=== PATIENT | female | born 1960 | race Caucasian/White ===

== ENCOUNTER 2021-10-08 10:13 | Inpatient (IN) ==
[2021-10-08] MEDS ORDERED: SODIUM CHLORIDE 0.9% 1000ML 1,000 ML IV ONE (11:02)
[2021-10-08] MEDS ORDERED: THIAMINE HCL 200 MG in SODIUM CHLORIDE 0.9% 50 ML IV STA (11:13)
--- NOTE | 2021-10-08 11:19 | Emergency Department Note ---
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 The patient was found by her significant other and appeared to be altered. Initially this was thought to be a medical condition so 911 and police were called. The patient's significant other found many empty bottles of liquor in the garbage. It was quickly assessed and determined that the patient might just be under the influence of alcohol. The patient herself states that she has been depressed and does drink significant amounts of alcohol including beer and liquor. She does have a couple abrasions on her right wrist she states she cut herself because she was so depressed. She does have a history of depression but also has a history of hypertension. She states that she is tried to stop drinking in the past but over the last year she has had significantly increasing intake of alcohol. She denies having any recent trauma but states she does have some chest pain. She said she is had nausea but no vomiting. She denies having any back pain. She states that she has been unable to walk correctly especially over the last few days. She is not been seen by her family doctor. ROS: See above HPI for pertinent positives & negatives. A total of 10 systems reviewed and were otherwise negative. PAST MEDICAL HISTORY: See Below PAST SURGICAL HISTORY: See Below FAMILY HISTORY: See Below SOCIAL HISTORY: See Below HOME MEDICATIONS: See Below ALLERGIES: See Below VITALS: See Below PHYSICAL EXAMINATION: GENERAL: The patient is awake to verbal commands. She is somewhat obtunded and appears intoxicated. EYES: The conjunctivae are clear. The pupils are round and reactive. EARS, NOSE, MOUTH AND THROAT: The nose is without any evidence of any deformity. NECK: The neck is nontender and supple. RESPIRATORY: Normal respiratory effort is noted there is no evidence of wheezing rhonchi or rales CARDIOVASCULAR: Regular rate and rhythm noted there no murmurs rubs or gallops normal S1 normal S2. GASTROINTESTINAL: The abdomen is distended and diffusely tender. There is guarding in the right upper quadrant with questionable hepatomegaly. MUSCULOSKELETAL/EXTREMITIES: There is no evidence of gross deformity full range of motion is noted in the hips and shoulders. SKIN: Trace pedal edema was noted bilaterally. Skin was warm and dry. Superficial abrasions were noted on the right wrist. These are age- indeterminate. NEUROLOGIC: Patient is awake alert and oriented x3 strength is symmetric patellar reflexes are 2+ bilaterally PSYCH: Patient makes poor eye contact mostly evaluation. She does appear to have a flat affect and still admits to wanting to hurt her self. She shows me the abrasions on her right wrist. MEDICAL DECISION MAKING: The patient is a 61-year-old female who presented to the emergency department for an evaluation of altered mental status and alcohol abuse. She is also had depression and suicidal ideation. The patient was thought suffering from a neur ologic disorder. She was brought to the emergency department for further evaluation. On my evaluation I feel the patient's condition could be consistent with alcohol withdrawal or possibly Warnicke's encephalopathy. She was treated with thiamine as well as banana bag in the emergency department. She was reevaluated multiple times. She was treated with Ativan. I discussed the patient's laboratory and radiographic studies [facility] They have agreed to evaluate the patient in the emergency department for further management and disposition. Triage Nursing notes reviewed. Prior medical records reviewed Vital Signs: reviewed and remarkable for hypertension and hypoxia. Differential diagnosis: Infection, hypoglycemia, electrolyte abnormalities, overdose, toxicologic, cardiac sources, intracerebral event, neurologic, trauma, as well as other pathologies. ER treatment provided: See below Diagnostics interpreted by me: ECG: EKG was obtained in the emergency department. My interpretation is sinus tachycardia at 104 bpm. There is no ectopy. LVH with suggested by voltage criteria. No previous tracing was available. Cardiac Monitoring: An order was placed for continuous cardiac monitoring. The monitor shows a rate of 90 bpm with sinus rhythm. Laboratory studies: As stated above and show below. Imaging studies: See below Consultation(s): I discussed this case with Denys who [facility] Past Med/Surg History Social History Smoking Status: Current every day smoker Tobacco Type: Cigarettes Feels Safe at Home: No Allergies Allergies Allergy/AdvReac Type Severity Reaction Status Date / Time Penicillins Allergy Hives Verified 10/08/21 11:03 Sulfa (Sulfonamide Allergy Hives Verified 10/08/21 11:03 Antibiotics) Home Meds Home Medications Medication Instructions Recorded Confirmed amlodipine 5 mg tablet 5 mg PO DAILY 10/08/21 10/08/21 buspirone 15 mg tablet 15 mg PO BID 10/08/21 10/08/21 escitalopram oxalate 20 mg tablet 20 mg PO DAILY 10/08/21 10/08/21 (Lexapro) hydroxyzine HCl 50 mg tablet 50 mg PO BID 10/08/21 10/08/21 hydroxyzine HCl 50 mg tablet 50 mg PO BID PRN 10/08/21 10/08/21 lisinopril 10 mg tablet 10 mg PO DAILY 10/08/21 10/08/21 pantoprazole 40 mg tablet,delayed 40 mg PO DAILY 10/08/21 10/08/21 release trazodone 100 mg tablet 200 mg PO HS 10/08/21 10/08/21 Results & Data (ED) Vital Signs Vital Signs - 24 hr 10/08/21 10:24 10/08/21 11:00 10/08/21 11:30 Temperature 37 C Temperature Source Oral Pulse Rate 118 H 101 H 103 H Pulse Rate from SpO2 Sensor Pulse Rhythm Regular Respiratory Rate 22 23 22 Respiratory Effort / Characteristics Non-Labored Respiratory Depth Normal Respiratory Pattern Regular Blood Pressure 183/102 H 160/99 H 153/102 H Blood Pressure Mean 129 119 119 Blood Pressure Position Semi-fowlers Pulse Oximetry 91 93 94 Oxygen Delivery Method Room Air Nasal Cannula Oxygen Flow Rate 2 Sepsis Recent Fever Within 48 Hours No Sepsis New/Unexplained Change in Mental Status N/A Sepsis Action Taken by Nursing No Action Required 10/08/21 12:16 10/08/21 12:20 10/08/21 12:30 Temperature Temperature Source Pulse Rate 115 H 101 H Pulse Rate from SpO2 Sensor 102 H 97 H Pulse Rhythm Respiratory Rate 26 H 26 H 34 H Respiratory Effort / Characteristics Respiratory Depth Respiratory Pattern Blood Pressure 142/93 H 151/121 H Blood Pressure Mean 109 131 Blood Pressure Position Pulse Oximetry 96 95 90 Oxygen Delivery Method Oxygen Flow Rate Sepsis Recent Fever Within 48 Hours Sepsis New/Unexplained Change in Mental Status Sepsis Action Taken by Nursing 10/08/21 12:40 10/08/21 12:50 10/08/21 13:01 Temperature Temperature Source Pulse Rate 95 H 90 Pulse Rate from SpO2 Sensor Pulse Rhythm Respiratory Rate 20 29 H 26 H Respiratory Effort / Characteristics Respiratory Depth Respiratory Pattern Blood Pressure 144/91 H Blood Pressure Mean 108 Blood Pressure Position Pulse Oximetry 96 Oxygen Delivery Method Nasal Cannula Oxygen Flow Rate 2 Sepsis Recent Fever Within 48 Hours Sepsis New/Unexplained Change in Mental Status Sepsis Action Taken by Nursing 10/08/21 13:20 Temperature Temperature Source Pulse Rate 90 Pulse Rate from SpO2 Sensor 90 Pulse Rhythm Respiratory Rate 26 H Respiratory Effort / Characteristics Respiratory Depth Respiratory Pattern Blood Pressure Blood Pressure Mean Blood Pressure Position Pulse Oximetry 95 Oxygen Delivery Method Oxygen Flow Rate Sepsis Recent Fever Within 48 Hours Sepsis New/Unexplained Change in Mental Status Sepsis Action Taken by Usp Medications Current Medication List: was personally reviewed by me Laboratory Data Attestation: I reviewed the patient's lab results. Result diagrams: 10/08/21 10:54 10/08/21 10:54 Lab Results 10/08/21 10/08/21 10/08/21 Range/Units 10:54 10:54 10:54 WBC (4.8-10.8) K/uL RBC (4.2-5.4) M/uL Hgb (12.0-16.0) g/dL Hct (37-47) % MCV (80-100) fL MCH (25-34) pg MCHC (32-36) g/dL RDW Std Deviation (36.4-46.3) fL RDW Coeff of Julius (11.5-14.5) % Plt Count (130-400) K/uL MPV (7.4-10.4) fL Immature Gran % (Auto) % Neut % (Auto) % Lymph % (Auto) % [place] % (Auto) % Eos % (Auto) % Baso % (Auto) % Neut # (Auto) (1.4-6.5) K/uL Lymph # (Auto) (1.2-3.4) K/uL [place] # (Auto) (0.11-0.59) K/uL Eos # (Auto) (0-0.5) K/uL Baso # (Auto) (0-0.2) K/uL Immature Gran # (Auto) (0.00-0.02) K/uL Absolute Nucleated RBC (0-0) K/uL Nucleated RBC % (auto) % PT (9.0-12.0) Seconds INR (0.9-1.1) APTT (21.0-31.0) Seconds PTT Ratio Sodium 135 L (136-145) mmol/L Potassium 3.5 (3.5-5.1) mmol/L Chloride 90 L (98-107) mmol/L Carbon Dioxide 31 (21-32) mmol/L Anion Gap 14 H (3-11) BUN 30 H (6-23) mg/dl Creatinine 1.03 (0.6-1.2) mg/dl Est Cr Clr Drug Dosing 52.3 ml/min Est GFR ( Amer) 67.0 ml/min Est GFR (Non-Af Amer) 57.8 ml/min BUN/Creatinine Ratio 29.1 H (10-20) Glucose 195 H (70-99(Fasting)) mg/dl Osmolality (280-300) mOsm/kg Calcium 10.1 (8.5-10.1) mg/dl Troponin I High Sens 12.7 (0-14) pg/ml Lipase 477 H (11-82) U/L HCG, Qual Negative (Negative) Urine Color Urine Appearance (Clear) Urine pH (4.5-7.5) Ur Specific [place] (1.000-1.030) Urine Protein (Negative) Urine Glucose (UA) (Negative) Urine Ketones (Negative) Urine Blood (Negative) Urine Nitrite (Negative) Urine Bilirubin (Negative) Urine Urobilinogen (Negative) Ur Leukocyte Esterase (Negative) Urine WBC (Auto) (0-5) /hpf Urine RBC (Auto) (0-4) /hpf U Hyaline Cast (Auto) (0-5) /lpf U Epithel Cells (Auto) (0-5) /lpf Urine Bacteria (Auto) (Negative) Salicylates (3.0-30) mg/dl Urine Opiates Screen (Neg) Ur Methadone, Qual (Neg) Acetaminophen (10-30) ug/ml Urine Barbiturates (Neg) Ur Phencyclidine (PCP) (Neg) U Amphetamin/Meth Scrn (Neg) MDMA (Ecstasy) Screen (Neg) U Benzodiazepines Scrn (Neg) Ur Cocaine Metabolite (Neg) U Marijuana (THC) Screen (Neg) Ethyl Alcohol mg/dL < 10.0 (<10.0) mg/dl SARS-CoV-2, RNA, NAAT (NEGATIVE) 10/08/21 10/08/21 10/08/21 Range/Units 10:54 10:54 10:54 WBC 8.24 (4.8-10.8) K/uL RBC 3.97 L (4.2-5.4) M/uL Hgb 12.3 (12.0-16.0) g/dL Hct 35.1 L (37-47) % MCV 88.4 (80-100) fL MCH 31.0 (25-34) pg MCHC 35.0 (32-36) g/dL RDW Std Deviation 44.1 (36.4-46.3) fL RDW Coeff of Julius 13.6 (11.5-14.5) % Plt Count 136 (130-400) K/uL MPV 9.7 (7.4-10.4) fL Immature Gran % (Auto) 1.5 % Neut % (Auto) 85.9 % Lymph % (Auto) 6.3 % [place] % (Auto) 6.2 % Eos % (Auto) 0.0 % Baso % (Auto) 0.1 % Neut # (Auto) 7.08 H (1.4-6.5) K/uL Lymph # (Auto) 0.52 L (1.2-3.4) K/uL [place] # (Auto) 0.51 (0.11-0.59) K/uL Eos # (Auto) 0.00 (0-0.5) K/uL Baso # (Auto) 0.01 (0-0.2) K/uL Immature Gran # (Auto) 0.12 H (0.00-0.02) K/uL Absolute Nucleated RBC 0.03 H (0-0) K/uL Nucleated RBC % (auto) 0.4 % PT 10.3 (9.0-12.0) Seconds INR 1.0 (0.9-1.1) APTT 21.9 (21.0-31.0) Seconds PTT Ratio 0.8 Sodium (136-145) mmol/L Potassium (3.5-5.1) mmol/L Chloride (98-107) mmol/L Carbon Dioxide (21-32) mmol/L Anion Gap (3-11) BUN (6-23) mg/dl Creatinine (0.6-1.2) mg/dl Est Cr Clr Drug Dosing ml/min Est GFR ( Amer) ml/min Est GFR (Non-Af Amer) ml/min BUN/Creatinine Ratio (10-20) Glucose (70-99(Fasting)) mg/dl Osmolality 295 (280-300) mOsm/kg Calcium (8.5-10.1) mg/dl Troponin I High Sens (0-14) pg/ml Lipase (11-82) U/L HCG, Qual (Negative) Urine Color Urine Appearance (Clear) Urine pH (4.5-7.5) Ur Specific [place] (1.000-1.030) Urine Protein (Negative) Urine Glucose (UA) (Negative) Urine Ketones (Negative) Urine Blood (Negative) Urine Nitrite (Negative) Urine Bilirubin (Negative) Urine Urobilinogen (Negative) Ur Leukocyte Esterase (Negative) Urine WBC (Auto) (0-5) /hpf Urine RBC (Auto) (0-4) /hpf U Hyaline Cast (Auto) (0-5) /lpf U Epithel Cells (Auto) (0-5) /lpf Urine Bacteria (Auto) (Negative) Salicylates (3.0-30) mg/dl Urine Opiates Screen (Neg) Ur Methadone, Qual (Neg) Acetaminophen (10-30) ug/ml Urine Barbiturates (Neg) Ur Phencyclidine (PCP) (Neg) U Amphetamin/Meth Scrn (Neg) MDMA (Ecstasy) Screen (Neg) U Benzodiazepines Scrn (Neg) Ur Cocaine Metabolite (Neg) U Marijuana (THC) Screen (Neg) Ethyl Alcohol mg/dL (<10.0) mg/dl SARS-CoV-2, RNA, NAAT (NEGATIVE) 10/08/21 10/08/21 10/08/21 Range/Units 10:54 10:54 12:11 WBC (4.8-10.8) K/uL RBC (4.2-5.4) M/uL Hgb (12.0-16.0) g/dL Hct (37-47) % MCV (80-100) fL MCH (25-34) pg MCHC (32-36) g/dL RDW Std Deviation (36.4-46.3) fL RDW Coeff of Julius (11.5-14.5) % Plt Count (130-400) K/uL MPV (7.4-10.4) fL Immature Gran % (Auto) % Neut % (Auto) % Lymph % (Auto) % [place] % (Auto) % Eos % (Auto) % Baso % (Auto) % Neut # (Auto) (1.4-6.5) K/uL Lymph # (Auto) (1.2-3.4) K/uL [place] # (Auto) (0.11-0.59) K/uL Eos # (Auto) (0-0.5) K/uL Baso # (Auto) (0-0.2) K/uL Immature Gran # (Auto) (0.00-0.02) K/uL Absolute Nucleated RBC (0-0) K/uL Nucleated RBC % (auto) % PT (9.0-12.0) Seconds INR (0.9-1.1) APTT (21.0-31.0) Seconds PTT Ratio Sodium (136-145) mmol/L Potassium (3.5-5.1) mmol/L Chloride (98-107) mmol/L Carbon Dioxide (21-32) mmol/L Anion Gap (3-11) BUN (6-23) mg/dl Creatinine (0.6-1.2) mg/dl Est Cr Clr Drug Dosing ml/min Est GFR ( Amer) ml/min Est GFR (Non-Af Amer) ml/min BUN/Creatinine Ratio (10-20) Glucose (70-99(Fasting)) mg/dl Osmolality (280-300) mOsm/kg Calcium (8.5-10.1) mg/dl Troponin I High Sens (0-14) pg/ml Lipase (11-82) U/L HCG, Qual (Negative) Urine Color Dark Yellow Urine Appearance Cloudy A (Clear) Urine pH 8.0 H (4.5-7.5) Ur Specific [place] 1.023 (1.000-1.030) Urine Protein 2+ H (Negative) Urine Glucose (UA) Negative (Negative) Urine Ketones 1+ H (Negative) Urine Blood 2+ H (Negative) Urine Nitrite Positive A (Negative) Urine Bilirubin 1+ H (Negative) Urine Urobilinogen Positive H (Negative) Ur Leukocyte Esterase 1+ H (Negative) Urine WBC (Auto) >30 H (0-5) /hpf Urine RBC (Auto) >30 H (0-4) /hpf U Hyaline Cast (Auto) 5-10 H (0-5) /lpf U Epithel Cells (Auto) >30 H (0-5) /lpf Urine Bacteria (Auto) 4+ H (Negative) Salicylates < 3.0 L (3.0-30) mg/dl Urine Opiates Screen (Neg) Ur Methadone, Qual (Neg) Acetaminophen < 3 L (10-30) ug/ml Urine Barbiturates (Neg) Ur Phencyclidine (PCP) (Neg) U Amphetamin/Meth Scrn (Neg) MDMA (Ecstasy) Screen (Neg) U Benzodiazepines Scrn (Neg) Ur Cocaine Metabolite (Neg) U Marijuana (THC) Screen (Neg) Ethyl Alcohol mg/dL (<10.0) mg/dl SARS-CoV-2, RNA, NAAT NEGATIVE (NEGATIVE) 10/08/21 Range/Units 12:11 WBC (4.8-10.8) K/uL RBC (4.2-5.4) M/uL Hgb (12.0-16.0) g/dL Hct (37-47) % MCV (80-100) fL MCH (25-34) pg MCHC (32-36) g/dL RDW Std Deviation (36.4-46.3) fL RDW Coeff of Julius (11.5-14.5) % Plt Count (130-400) K/uL MPV (7.4-10.4) fL Immature Gran % (Auto) % Neut % (Auto) % Lymph % (Auto) % [place] % (Auto) % Eos % (Auto) % Baso % (Auto) % Neut # (Auto) (1.4-6.5) K/uL Lymph # (Auto) (1.2-3.4) K/uL [place] # (Auto) (0.11-0.59) K/uL Eos # (Auto) (0-0.5) K/uL Baso # (Auto) (0-0.2) K/uL Immature Gran # (Auto) (0.00-0.02) K/uL Absolute Nucleated RBC (0-0) K/uL Nucleated RBC % (auto) % PT (9.0-12.0) Seconds INR (0.9-1.1) APTT (21.0-31.0) Seconds PTT Ratio Sodium (136-145) mmol/L Potassium (3.5-5.1) mmol/L Chloride (98-107) mmol/L Carbon Dioxide (21-32) mmol/L Anion Gap (3-11) BUN (6-23) mg/dl Creatinine (0.6-1.2) mg/dl Est Cr Clr Drug Dosing ml/min Est GFR ( Amer) ml/min Est GFR (Non-Af Amer) ml/min BUN/Creatinine Ratio (10-20) Glucose (70-99(Fasting)) mg/dl Osmolality (280-300) mOsm/kg Calcium (8.5-10.1) mg/dl Troponin I High Sens (0-14) pg/ml Lipase (11-82) U/L HCG, Qual (Negative) Urine Color Urine Appearance (Clear) Urine pH (4.5-7.5) Ur Specific [place] (1.000-1.030) Urine Protein (Negative) Urine Glucose (UA) (Negative) Urine Ketones (Negative) Urine Blood (Negative) Urine Nitrite (Negative) Urine Bilirubin (Negative) Urine Urobilinogen (Negative) Ur Leukocyte Esterase (Negative) Urine WBC (Auto) (0-5) /hpf Urine RBC (Auto) (0-4) /hpf U Hyaline Cast (Auto) (0-5) /lpf U Epithel Cells (Auto) (0-5) /lpf Urine Bacteria (Auto) (Negative) Salicylates (3.0-30) mg/dl Urine Opiates Screen Neg (Neg) Ur Methadone, Qual Neg (Neg) Acetaminophen (10-30) ug/ml Urine Barbiturates Neg (Neg) Ur Phencyclidine (PCP) Neg (Neg) U Amphetamin/Meth Scrn Neg (Neg) MDMA (Ecstasy) Screen Pos H (Neg) U Benzodiazepines Scrn Neg (Neg) Ur Cocaine Metabolite Neg (Neg) U Marijuana (THC) Screen Neg (Neg) Ethyl Alcohol mg/dL (<10.0) mg/dl SARS-CoV-2, RNA, NAAT (NEGATIVE) Administered Medications Discontinued Medications Sodium Chloride (Nss 1000ml) 1,000 mls @ 999 mls/hr IV .Q1H1M ONE Stop: 10/08/21 12:02 Last Infusion: 10/08/21 12:04 Dose: 0 mls/hr Documented by: [id number] Admin: 10/08/21 11:03 Dose: 999 mls/hr Documented by: [id number] Thiamine HCl 200 mg/ Sodium (Chloride) 52 mls @ 208 mls/hr IV NOW STA Stop: 10/08/21 11:14 Last Infusion: 10/08/21 12:01 Dose: 0 mls/hr Documented by: [id number] Admin: 10/08/21 11:46 Dose: 208 mls/hr Documented by: [id number] Multivitamins 10 ml/ Thiamine HCl 100 mg/ Folic Acid 1 mg/Sodium Chloride 1,011.2 mls @ 1,011.2 mls/hr IV .Q1H ONE Stop: 10/08/21 13:16 Last Admin: 10/08/21 12:38 Dose: 1,011.2 mls/hr Documented by: [id number] Lorazepam (Lorazepam 2 Mg/1 Ml Vial) 1 mg IV NOW STA Stop: 10/08/21 12:18 Last Admin: 10/08/21 12:26 Dose: 1 mg Documented by: [id number] Imaging Data Radiologist's Impression: Abdomen/Pelvis CT 10/08/21 11:[address] WITHOUT CONTRAST CT DOSE: 465.65 mGy.cm HISTORY: Generalized abdominal pain. TECHNIQUE: Multiaxial CT images of the abdomen and pelvis were performed without contrast. A dose lowering technique was utilized adhering to the principles of ALARA. COMPARISON STUDY: None. FINDINGS: The lung bases are clear. No pneumoperitoneum. No pneumatosis. No fractures within the visualized osseous structures. There is a small hiatus he rnia. Severe hepatic steatosis. Sludge-filled gallbladder. No gallbladder wall thickening. The unenhanced spleen, adrenal glands, pancreas, and kidneys are unremarkable. No retroperitoneal lymphadenopathy. Normal caliber abdominal aorta. No renal or ureteral stones. No hydronephrosis. A 2.4 cm calcified uterine fibroid. The bladder is unremarkable. The bilateral adnexa are within normal limits. There is mild pelvic floor collapse. Suboptimal evaluation for bowel pathology due to the lack of intravenous and oral contrast. However, there is no definite bowel wall thickening or obstruction. A few colonic diverticula. No evidence for acute diverticulitis. Normal appendix. IMPRESSION: 1. Severe hepatic steatosis. 2. Sludge-filled gallbladder. No gallbladder wall thickening. 3. No bowel wall thickening or obstruction. 4. Normal appendix. 5. Colonic diverticulosis. No evidence for acute diverticulitis. 6. A 2.4 cm partially calcified uterine fibroid. 7. Small hiatus hernia. ACT 112: Negative or not required by law. Electronically signed by: Mohit Badillo M.D. 10/08/2021 12:12 PM Chest X-Ray 10/08/21 11:13 XR chest 1V portable HISTORY: Shortness of breath. COMPARISON: None. FINDINGS: Mild interstitial/vascular thickening. The heart is normal in size. No pleural effusion. No pneumothorax. IMPRESSION: Mild interstitial/vascular thickening. This could be due to mild congestive change or a viral process. ACT 112: Negative or not required by law. Electronically signed by: Mohit Badillo M.D. 10/08/2021 12:[address] 10/08/21 11:[address] DOSE: 687.98 mGy.cm HISTORY: Altered mental status. TECHNIQUE: Multiaxial CT images of the head were performed without the use of intravenous contrast. Automated exposure control was utilized for this study. A dose lowering technique was utilized adhering to the principles of ALARA. Comparison: None. Findings: The paranasal sinuses and mastoid air cells are clear. The calvarium and skull base are intact. The ventricles and sulci are within normal limits. There is no mass, hematoma, midline shift, or acute infarct. Impression: No acute intracranial abnormality. ACT 112: Negative or not required by law. Electronically signed by: Mohit Badillo M.D. 10/08/2021 12:08 PM Discharge Plan Visit Data Chief Complaint: Alcohol Withdrawal Stated Complaint: 201 ED Provider: Brandon Gaspar Discharge Problem: Alcohol withdrawal syndrome, Urinary tract infection, Depression with suicidal ideation, Wernicke's encephalopathy Patient Disposition: Being Evaluated by Hospitalist Forms Stand Alone Forms: [facility], Suicide Prevention Resources Prescriptions Prescriptions: No Action hydroxyzine HCl 50 mg Tablet 50 mg PO BID RF: 0 hydroxyzine HCl 50 mg Tablet 50 mg PO BID PRN (Reason: Anxiety) RF: 0 amlodipine 5 mg Tablet 5 mg PO DAILY RF: 0 trazodone 100 mg Tablet 200 mg PO HS RF: 0 pantoprazole 40 mg Tablet,Delayed Release (Dr/Ec) 40 mg PO DAILY RF: 0 lisinopril 10 mg Tablet 10 mg PO DAILY RF: 0 buspirone 15 mg Tablet 15 mg PO BID RF: 0 escitalopram oxalate [Lexapro] 20 mg Tablet 20 mg PO DAILY RF: 0 Referrals Referrals: PCP,NO [Physician] -
[2021-10-08 11:32] LABS: Basophils # (auto) 0.01 K/uL (0-0.2); Basophils % (auto) 0.1 %; Hematocrit (blood only) 35.1 % (37-47); Hemoglobin 12.3 g/dL (12.0-16.0); Immature Granulocytes # (auto) 0.12 K/uL (0.00-0.02); Immature Granulocytes % (auto) 1.5 %; Lymphocytes # (auto) 0.52 K/uL (1.2-3.4); Lymphocytes % (auto) 6.3 %; Mean Corpuscular Volume 88.4 fL (80-100); Mean Platelet Volume 9.7 fL (7.4-10.4); Monocytes # (auto) 0.51 K/uL (0.11-0.59); Monocytes % (auto) 6.2 %; Neutrophils # (auto) 7.08 K/uL (1.4-6.5); Neutrophils % (auto) 85.9 %; Nucleated RBC # (auto) 0.03 K/uL (0-0); Nucleated RBC % (auto) 0.4 %; Platelet Count 136 K/uL (130-400); RDW Coefficient of Variation 13.6 % (11.5-14.5); RDW Standard Deviation 44.1 fL (36.4-46.3); Red Blood Count 3.97 M/uL (4.2-5.4); White Blood Count 8.24 K/uL (4.8-10.8)
[2021-10-08 11:36] LABS: Pregnancy Test, Serum Negative (Negative)
[2021-10-08 11:39] LABS: Acetaminophen < 3 ug/ml (10-30); BUN Creatinine Ratio 29.1 (10-20); Calcium 10.1 mg/dl (8.5-10.1); Creatinine Clr Calc Pharmacy 52.3 ml/min; Est GFR (Non-African American) 57.8 ml/min; Potassium 3.5 mmol/L (3.5-5.1); Salicylate < 3.0 mg/dl (3.0-30)
[2021-10-08 11:43] LABS: Troponin I High Sensitivity 12.7 pg/ml (0-14)
[2021-10-08 11:45] LABS: Partial Thromboplastin Ratio 0.8; Partial Thromboplastin Time 21.9 Seconds (21.0-31.0); Prothrombin Time 10.3 Seconds (9.0-12.0)
[2021-10-08 12:06] LABS: Base Excess VBG 10.2 mEq/L; Oxygen Saturation VBG 85.7 %; pH VBG 7.55 (7.36-7.41)
--- NOTE | 2021-10-08 12:09 | CT Scan Report ---
HEAD CT NONCONTRAST CT DOSE: 687.98 mGy.cm HISTORY: Altered mental status. TECHNIQUE: Multiaxial CT images of the head were performed without the use of intravenous contrast. A utomated exposure control was utilized for this study. A dose lowering technique was utilized adheri ng to the principles of ALARA. Comparison: None. Findings: The paranasal sinuses and mastoid air cells are clear. The calvarium and skull base are int act. The ventricles and sulci are within normal limits. There is no mass, hematoma, midline shift, or acute infarct. Impression: No acute intracranial abnormality. ACT 112: Negative or not required by law. Electronically signed by: Mohit Badillo M.D. 10/08/2021 12:08 PM
--- NOTE | 2021-10-08 12:15 | CT Scan Report ---
ABDOMEN AND PELVIS CT WITHOUT CONTRAST CT DOSE: 465.65 mGy.cm HISTORY: Generalized abdominal pain. TECHNIQUE: Multiaxial CT images of the abdomen and pelvis were performed without contrast. A dose lo wering technique was utilized adhering to the principles of ALARA. COMPARISON STUDY: None. FINDINGS: The lung bases are clear. No pneumoperitoneum. No pneumatosis. No fractures within the visu alized osseous structures. There is a small hiatus hernia. Severe hepatic steatosis. Sludge-filled ga llbladder. No gallbladder wall thickening. The unenhanced spleen, adrenal glands, pancreas, and kidne ys are unremarkable. No retroperitoneal lymphadenopathy. Normal caliber abdominal aorta. No renal or ureteral stones. No hydronephrosis. A 2.4 cm calcified uterine fibroid. The bladder is unremarkable. The bilateral adnexa are within normal limits. There is mild pelvic floor collapse. Suboptimal evalua tion for bowel pathology due to the lack of intravenous and oral contrast. However, there is no defin ite bowel wall thickening or obstruction. A few colonic diverticula. No evidence for acute diverticul itis. Normal appendix. IMPRESSION: 1. Severe hepatic steatosis. 2. Sludge-filled gallbladder. No gallbladder wall thickening. 3. No bowel wall thickening or obstruction. 4. Normal appendix. 5. Colonic diverticulosis. No evidence for acute diverticulitis. 6. A 2.4 cm partially calcified uterine fibroid. 7. Small hiatus hernia. ACT 112: Negative or not required by law. Electronically signed by: Mohit Badillo M.D. 10/08/2021 12:12 PM
[2021-10-08] MEDS ORDERED: LORazepam 2 MG/1 ML VIAL IV STA (12:17)
[2021-10-08] MEDS ORDERED: MULTI-VITAMIN INFUSION 10 ML, THIAMINE HCL 100 MG, FOLIC ACID 1 MG in SODIUM CHLORIDE 0... IV ONE (12:17)
[2021-10-08 12:29] LABS: Appearance Urine Cloudy (Clear); Bacteria Urine Automated 4+ (Negative); Blood Urine 2+ (Negative); Color Urine Dark Yellow; Epithelial Cell Urine Auto >30 /lpf (0-5); Glucose Urine UA Negative (Negative); Ketones Urine 1+ (Negative); Leukocyte Esterase Urine 1+ (Negative); Nitrite Urine Positive (Negative); RBC Urine Automated >30 /hpf (0-4); Specific Gravity Urine 1.023 (1.000-1.030); Urobilinogen Urine Positive (Negative); WBC Urine Automated >30 /hpf (0-5)
[2021-10-08 12:30] LABS: Bilirubin Urine 1+ (Negative); Protein Urine 2+ (Negative)
--- NOTE | 2021-10-08 12:56 | XRay Report ---
XR chest 1V portable HISTORY: Shortness of breath. COMPARISON: None. FINDINGS: Mild interstitial/vascular thickening. The heart is normal in size. No pleural effusion. No pneumothorax. IMPRESSION: Mild interstitial/vascular thickening. This could be due to mild congestive change or a viral process . ACT 112: Negative or not required by law. Electronically signed by: Mohit Badillo M.D. 10/08/2021 12:55 PM
[2021-10-08] MEDS ORDERED: cefTRIAXone SODIUM 2,000 MG/70 ML BAG IV STA (13:12)
[2021-10-08 13:19] LABS: Amphetamines+Metham, Urine Neg (Neg); Barbiturates, Urine Neg (Neg); Benzodiazepine, Urine Neg (Neg); Cocaine, Urine Neg (Neg); MDMA (Ecstacy), Urine Pos (Neg); Methadone, Urine Neg (Neg); Opiate, Urine Neg (Neg); Phencyclidine, Urine Neg (Neg)
--- NOTE | 2021-10-08 13:42 | History & Physical Report ---
Date of Service October 08, 2021 Assessment & Plan (1) Alcohol withdrawal syndrome: Plan: Overall patient states she only drinks 1 beer per day and 1 shot of demetri- last drink was this morning with demetri shot - her ETOH level on admission is <10 - Reportedly found with epmty "handles" of liquor in her room - Given 1mg of Ativan by EMD - She is encephalopathic- her tachy cardia and htn are improved - continue with AWWS score and treatment with benzodiazepines- further treatment based off LFTs - Continue Thiamine 500mg IV TID - Folic acid qam - Urine tox screen positive for MDMA- is on Trazodone await for confirmatory (2) Urinary tract infection: Plan: Urine with bacteria- ketones, blood, bilirubin - Given 1 dose of Rocephin in EMD- will continue with pending cultures - patient denies symptoms (3) Pancreatitis: Plan: Lipase 477 with epigastric pain- without elevated WBC or fevers in the setting of alcohol misuse/abuse - Continue with IV hydration LR 100- guide therapy to UO - already received 2 liters of fluid in the EMD- with banana bag and liter of saline - BISAP score- 4- mild elevation of BUN and tachycardia and HTN are resolving with fluid administration and Ativan dosing - will obtain CT scan of abd/pelvis for evaluation of liver/gallbladder/pancreas- - Lipid panel pending - LFTs pending - glucose 195 - Check iCA/Phos/Mag - Low fat carb consistent diet- return to clears if pain with eating (4) Hepatitis: Plan: Likely related to acholic hepatitis- with Jaundice- or onset of cirrhosis with noted severe hepatsteatosis - INR normal - WBC normal- PCT negative - will obtain CT abdomen and pelvis to evaluate liver/pancreas/gallbladder- MRCP if needed - supportive care as above (5) Depression with suicidal ideation: Plan: History of Depression and anxiety- PCP notes just note that she sees a psych provider - She reports cutting herself 2 days ago- but got scared and stopped- she has horizontal cuts to her right wrist x2- not infected looking - She does endorse worsening of her depression to the point it has caused strain on her relationship with daughters - Admit with suicide precautions and psych consultation- appreciate assistance - Continue her Lexapro, trazodone PRN at night - Will hold he Hydroxyzine for today and follow with overall benzodiazepine dosing for her likely ETOH withdraw (6) Encephalopathy: Plan: Metabolic vs. Wernicke's - Without nystagmus - No deficits - Oriented but with slurring speech (7) Metabolic alkalosis: Plan: PH 7.55 with HCo3 33- with elevated BUN - likely in the setting of hypovolemia secondary to encephalopathy, UTI, pancreatitis, and ETOH use/ketosis - Continue with IVF resuscitation - Follow HCo3 and urine output (8) Anxiety: Plan: As above (9) Elevated random blood glucose level: Plan: Without diagnosis of DM - will place on sliding scale aspart insulin- without carb ratio until oral intake is stable - Goal < 180mg/dl (10) Hypophosphatemia: Plan: As above - replete - K phos History of Present Illness Primary Care Provider: Judy Quintanilla MD 61 YOF with medical history of: Anxiety/Depression, HTN, current smoker. Patient was found at home today by her significant other with alteration in her mental sate and 911 and ploice were reportedly called. There was report from the significant other that there were multiple bottles of liquor found in the garage that were empty. She endorses to drinking 1 beer per day and 1 shot of demetri. Upon her being brought over here as well, it was noted that she had cuts to her right wrist. She reports doing this 2 days ago, but stopped because she got scared, but was feeling very sad that day. Patient also endorses epigastric abdominal pain. In the EMD the patient had routine labs performed, CXR done and ECG done. She was given 1mg of Ativan, 300mg of Thiamine total 100mg in banana bag and 200mg prior and 1 liter of crystalloid. Labs returned with abnormal UA, Elevated glucose, and elevated lipase. Hospitalist service was consulted for admission. LFTS are pending, but is with normal INR as well as normal WBC/HGB. Patient will be admitted for her encephalopathy, alcohol withdraw monitoring, will obtain CT abdomen and pelvis and continue with AWWS and Thiamine at 500mg IV TID. Will consult psych. Consult case management to follow along for either psych or ETOH rehab as more information becomes available. COVID test on admission is: NEGATIVE Allergies Allergy/AdvReac Type Severity Reaction Status Date / Time Penicillins Allergy Hives Verified 10/08/21 11:03 Sulfa (Sulfonamide Allergy Hives Verified 10/08/21 11:03 Antibiotics) Home Medications Medication Instructions Recorded Confirmed Type amlodipine 5 mg tablet 5 mg PO DAILY 10/08/21 10/08/21 History buspirone 15 mg tablet 15 mg PO BID 10/08/21 10/08/21 History escitalopram oxalate 20 mg tablet 20 mg PO DAILY 10/08/21 10/08/21 History (Lexapro) hydroxyzine HCl 50 mg tablet 50 mg PO BID 10/08/21 10/08/21 History hydroxyzine HCl 50 mg tablet 50 mg PO BID PRN 10/08/21 10/08/21 History lisinopril 10 mg tablet 10 mg PO DAILY 10/08/21 10/08/21 History pantoprazole 40 mg tablet,delayed 40 mg PO DAILY 10/08/21 10/08/21 History release trazodone 100 mg tablet 200 mg PO HS 10/08/21 10/08/21 History Past Med/Surg History Medical History Alcohol use Anxiety Depression Smoker Social History Smoking Status: Current every day smoker Tobacco Type: Cigarettes Cigarettes Per Day: 1 pk/kday; Second Hand Exposure: Yes; Do You Dip or Chew Tobacco: No; Hx Alcohol Use: Yes Alcohol type: beer and hard liquor Hx Substance Use: No Preferred Language: Cymraes Communication Ability: Effective Preparer Required: No Beliefs That Will Affect Care: None marital status: Single Current Living Situation: Significant Other Current Living Situation Comment: Lives with Kayode Feels Safe at Home: Yes Safety Concerns: Afraid for Self Assistive Devices: Walker Review of Systems Review of Systems: REVIEW OF SYSTEMS: Constitutional: No fever, sweats or chills Eyes: No diplopia, no worsening or blurred vision ENT: normal hearing, no trouble swallowing Respiratory: No cough, sputum, dyspnea at rest or on exertion Cardiovascular: No chest pain, tightness or palpitations Abdomen: (+) pain, nausea, vomiting, diarrhea or constipation Musculoskeletal: No joint pain, calf pain, swelling Neurologic: No weakness, numbness/tingling, or balance problems Psychiatric: (+) anxiety or depression Skin: No rash or itch Physical Exam Physical Exam: PHYSICAL EXAM: General: awake, appropriate, but with slow responses and poor ability to connect sentences and thoughts Head: Normocephalic, atraumatic ENT: Sclera jaundiced, PERRL, EOMI, no pharyngeal exudate, mucous membranes moist Neuro: AAO x 3, speech garbled but understandable, strength intact bilaterally 5/5, sensation intact and equal all extremities and dermatomes, no pronator drift,tremors without atxia Chest: equal rise and fall of the chest, no accessory muscle use, no heaves or thrills, Clear to auscultation, on room air, Cardiac: Regular rate and rhythm, telemetry reviewed, skin warm dry, cap refill <3 seconds, peripheral pulses +2 no JVD, no murmur, no JVD, no edema GI: epigastric bird and pain to luq with palpation, NABS x 4 quadrants, soft, no rebound, guarding : Spontaneously voiding, no pain, no CVA tenderness, Extremities: Normal inspection, no peripheral edema or erythema, calfs nontender to palpation Psych wait for encephalopathy to clear Skin: cuts to right wrist Results & Data Results & Data ([facility]) Vital Signs (Past 12 Hours) Vital Signs Temp Pulse Resp BP Pulse Ox 10/08/21 13:20 90 26 H 95 10/08/21 13:01 90 26 H 144/91 H 96 10/08/21 12:50 95 H 29 H 10/08/21 12:40 20 10/08/21 12:30 34 H 151/121 H 90 10/08/21 12:20 101 H 26 H 95 10/08/21 12:16 115 H 26 H 142/93 H 96 10/08/21 11:30 103 H 22 153/102 H 94 10/08/21 11:00 101 H 23 160/99 H 93 10/08/21 10:24 37 C 118 H 22 183/102 H 91 Laboratory Results Abnormal lab results 10/08/21 10/08/21 10/08/21 Range/Units 10:54 10:54 10:54 RBC 3.97 L (4.2-5.4) M/uL Hct 35.1 L (37-47) % Neut # (Auto) 7.08 H (1.4-6.5) K/uL Lymph # (Auto) 0.52 L (1.2-3.4) K/uL Immature Gran # (Auto) 0.12 H (0.00-0.02) K/uL Absolute Nucleated RBC 0.03 H (0-0) K/uL VBG pH (7.36-7.41) Sodium 135 L (136-145) mmol/L Chloride 90 L (98-107) mmol/L Anion Gap 14 H (3-11) BUN 30 H (6-23) mg/dl BUN/Creatinine Ratio 29.1 H (10-20) Glucose 195 H (70-99(Fasting)) mg/dl Phosphorus (2.5-4.9) mg/dl Total Bilirubin (0.2-1.0) mg/dl Direct Bilirubin (0-0.2) mg/dl AST (13-39) U/L ALT (7-52) U/L Alkaline Phosphatase (34-104) U/L Total Creatine Kinase (26-192) U/L C-Reactive Protein (0-0.5) mg/dl Lipase 477 H (11-82) U/L Urine Appearance (Clear) Urine pH (4.5-7.5) Urine Protein (Negative) Urine Ketones (Negative) Urine Blood (Negative) Urine Nitrite (Negative) Urine Bilirubin (Negative) Urine Urobilinogen (Negative) Ur Leukocyte Esterase (Negative) Urine WBC (Auto) (0-5) /hpf Urine RBC (Auto) (0-4) /hpf U Hyaline Cast (Auto) (0-5) /lpf U Epithel Cells (Auto) (0-5) /lpf Urine Bacteria (Auto) (Negative) Salicylates < 3.0 L (3.0-30) mg/dl Acetaminophen < 3 L (10-30) ug/ml MDMA (Ecstasy) Screen (Neg) 10/08/21 10/08/21 10/08/21 Range/Units 11:36 12:11 12:11 RBC (4.2-5.4) M/uL Hct (37-47) % Neut # (Auto) (1.4-6.5) K/uL Lymph # (Auto) (1.2-3.4) K/uL Immature Gran # (Auto) (0.00-0.02) K/uL Absolute Nucleated RBC (0-0) K/uL VBG pH 7.55 H (7.36-7.41) Sodium (136-145) mmol/L Chloride (98-107) mmol/L Anion Gap (3-11) BUN (6-23) mg/dl BUN/Creatinine Ratio (10-20) Glucose (70-99(Fasting)) mg/dl Phosphorus (2.5-4.9) mg/dl Total Bilirubin (0.2-1.0) mg/dl Direct Bilirubin (0-0.2) mg/dl AST (13-39) U/L ALT (7-52) U/L Alkaline Phosphatase (34-104) U/L Total Creatine Kinase (26-192) U/L C-Reactive Protein (0-0.5) mg/dl Lipase (11-82) U/L Urine Appearance Cloudy A (Clear) Urine pH 8.0 H (4.5-7.5) Urine Protein 2+ H (Negative) Urine Ketones 1+ H (Negative) Urine Blood 2+ H (Negative) Urine Nitrite Positive A (Negative) Urine Bilirubin 1+ H (Negative) Urine Urobilinogen Positive H (Negative) Ur Leukocyte Esterase 1+ H (Negative) Urine WBC (Auto) >30 H (0-5) /hpf Urine RBC (Auto) >30 H (0-4) /hpf U Hyaline Cast (Auto) 5-10 H (0-5) /lpf U Epithel Cells (Auto) >30 H (0-5) /lpf Urine Bacteria (Auto) 4+ H (Negative) Salicylates (3.0-30) mg/dl Acetaminophen (10-30) ug/ml MDMA (Ecstasy) Screen Pos H (Neg) 10/08/21 10/08/21 Range/Units 13:06 13:06 RBC (4.2-5.4) M/uL Hct (37-47) % Neut # (Auto) (1.4-6.5) K/uL Lymph # (Auto) (1.2-3.4) K/uL Immature Gran # (Auto) (0.00-0.02) K/uL Absolute Nucleated RBC (0-0) K/uL VBG pH (7.36-7.41) Sodium (136-145) mmol/L Chloride (98-107) mmol/L Anion Gap (3-11) BUN (6-23) mg/dl BUN/Creatinine Ratio (10-20) Glucose (70-99(Fasting)) mg/dl Phosphorus 1.9 L (2.5-4.9) mg/dl Total Bilirubin 3.0 H (0.2-1.0) mg/dl Direct Bilirubin 1.8 H (0-0.2) mg/dl AST 777 H (13-39) U/L ALT 255 H (7-52) U/L Alkaline Phosphatase 167 H (34-104) U/L Total Creatine Kinase 216 H (26-192) U/L C-Reactive Protein 2.32 H (0-0.5) mg/dl Lipase (11-82) U/L Urine Appearance (Clear) Urine pH (4.5-7.5) Urine Protein (Negative) Urine Ketones (Negative) Urine Blood (Negative) Urine Nitrite (Negative) Urine Bilirubin (Negative) Urine Urobilinogen (Negative) Ur Leukocyte Esterase (Negative) Urine WBC (Auto) (0-5) /hpf Urine RBC (Auto) (0-4) /hpf U Hyaline Cast (Auto) (0-5) /lpf U Epithel Cells (Auto) (0-5) /lpf Urine Bacteria (Auto) (Negative) Salicylates (3.0-30) mg/dl Acetaminophen (10-30) ug/ml MDMA (Ecstasy) Screen (Neg) Diagnostic Findings Abdomen/Pelvis CT 10/08/21 11:[address] WITHOUT CONTRAST CT DOSE: 465.65 mGy.cm HISTORY: Generalized abdominal pain. TECHNIQUE: Multiaxial CT images of the abdomen and pelvis were performed without contrast. A dose lowering technique was utilized adhering to the principles of ALARA. COMPARISON STUDY: None. FINDINGS: The lung bases are clear. No pneumoperitoneum. No pneumatosis. No fractures within the visualized osseous structures. There is a small hiatus hernia. Severe hepatic steatosis. Sludge-filled gallbladder. No gallbladder wall thickening. The unenhanced spleen, adrenal glands, pancreas, and kidneys are unremarkable. No retroperitoneal lymphadenopathy. Normal caliber abdominal aorta. No renal or ureteral stones. No hydronephrosis. A 2.4 cm calcified uterine fibroid. The bladder is unremarkable. The bilateral adnexa are within normal limits. There is mild pelvic floor collapse. Suboptimal evaluation for bowel pathology due to the lack of intravenous and oral contrast. However, there is no definite bowel wall thickening or obstruction. A few colonic diverticula. No evidence for acute diverticulitis. Normal appendix. IMPRESSION: 1. Severe hepatic steatosis. 2. Sludge-filled gallbladder. No gallbladder wall thickening. 3. No bowel wall thickening or obstruction. 4. Normal appendix. 5. Colonic diverticulosis. No evidence for acute diverticulitis. 6. A 2.4 cm partially calcified uterine fibroid. 7. Small hiatus hernia. ACT 112: Negative or not required by law. Electronically signed by: Mohit Badillo M.D. 10/08/2021 12:12 PM Chest X-Ray 10/08/21 11:13 XR chest 1V portable HISTORY: Shortness of breath. COMPARISON: None. FINDINGS: Mild interstitial/vascular thickening. The heart is normal in size. No pleural effusion. No pneumothorax. IMPRESSION: Mild interstitial/vascular thickening. This could be due to mild congestive change or a viral process. ACT 112: Negative or not required by law. Electronically signed by: Mohit Badillo M.D. 10/08/2021 12:[address] 10/08/21 11:[address] DOSE: 687.98 mGy.cm HISTORY: Altered mental status. TECHNIQUE: Multiaxial CT images of the head were performed without the use of intravenous contrast. Automated exposure control was utilized for this study. A dose lowering technique was utilized adhering to the principles of ALARA. Comparison: None. Findings: The paranasal sinuses and mastoid air cells are clear. The calvarium and skull base are intact. The ventricles and sulci are within normal limits. There is no mass, hematoma, midline shift, or acute infarct. Impression: No acute intracranial abnormality. ACT 112: Negative or not required by law. Electronically signed by: Mohit Badillo M.D. 10/08/2021 12:08 PM ADDENDUM There are small patchy groundglass densities within the lung bases. These are n onspecific but could be due to mild congestive change or a low-grade viral pneumonitis. Electronically signed by: Mohit Badillo M.D. 10/08/2021 12:56 PM ADDENDUM END ABDOMEN AND PELVIS CT WITHOUT CONTRAST CT DOSE: 465.65 mGy.cm HISTORY: Generalized abdominal pain. TECHNIQUE: Multiaxial CT images of the abdomen and pelvis were performed without contrast. A dose lowering technique was utilized adhering to the principles of ALARA. COMPARISON STUDY: None. FINDINGS: The lung bases are clear. No pneumoperitoneum. No pneumatosis. No fractures within the visualized osseous structures. There is a small hiatus hernia. Severe hepatic steatosis. Sludge-filled gallbladder. No gallbladder wall thickening. The unenhanced spleen, adrenal glands, pancreas, and kidneys are unremarkable. No retroperitoneal lymphadenopathy. Normal caliber abdominal aorta. No renal or ureteral stones. No hydronephrosis. A 2.4 cm calcified uterine fibroid. The bladder is unremarkable. The bilateral adnexa are within normal limits. There is mild pelvic floor collapse. Suboptimal evaluation for bowel pathology due to the lack of intravenous and oral contrast. However, there is no definite bowel wall thickening or obstruction. A few colonic diverticula. No evidence for acute diverticulitis. Normal appendix. IMPRESSION: 1. Severe hepatic steatosis. 2. Sludge-filled gallbladder. No gallbladder wall thickening. 3. No bowel wall thickening or obstruction. 4. Normal appendix. 5. Colonic diverticulosis. No evidence for acute diverticulitis. 6. A 2.4 cm partially calcified uterine fibroid. 7. Small hiatus hernia. ACT 112: Negative or not required by law. Electronically signed by: Mohit Badillo M.D. 10/08/2021 12:12 PM Dictated:10/08/21 1208 Transcribed: 10/08/21 1208 Medications Administered Home Medications amlodipine 5 mg tablet 5 mg PO DAILY 10/08/21 [History Confirmed 10/08/21] buspirone 15 mg tablet 15 mg PO BID 10/08/21 [History Confirmed 10/08/21] escitalopram oxalate 20 mg tablet (Lexapro) 20 mg PO DAILY 10/08/21 [History Con firmed 10/08/21] hydroxyzine HCl 50 mg tablet 50 mg PO BID 10/08/21 [History Confirmed 10/08/21] hydroxyzine HCl 50 mg tablet 50 mg PO BID PRN 10/08/21 [History Confirmed 10/08/21] lisinopril 10 mg tablet 10 mg PO DAILY 10/08/21 [History Confirmed 10/08/21] pantoprazole 40 mg tablet,delayed release 40 mg PO DAILY 10/08/21 [History Confirmed 10/08/21] trazodone 100 mg tablet 200 mg PO HS 10/08/21 [History Confirmed 10/08/21] Active Medications Ceftriaxone Sodium (Rocephin) 2,000 mg in 70 mls @ 140 mls/hr IV NOW STA Stop: 10/08/21 13:41 Discontinued Medications Sodium Chloride (Nss 1000ml) 1,000 mls @ 999 mls/hr IV .Q1H1M ONE Stop: 10/08/21 12:02 Last Infusion: 10/08/21 12:04 Dose: 0 mls/hr Documented by: [id number] Admin: 10/08/21 11:03 Dose: 999 mls/hr Documented by: [id number] Thiamine HCl 200 mg/ Sodium (Chloride) 52 mls @ 208 mls/hr IV NOW STA Stop: 10/08/21 11:14 Last Infusion: 10/08/21 12:01 Dose: 0 mls/hr Documented by: [id number] Admin: 10/08/21 11:46 Dose: 208 mls/hr Documented by: [id number] Multivitamins 10 ml/ Thiamine HCl 100 mg/ Folic Acid 1 mg/Sodium Chloride 1,011.2 mls @ 1,011.2 mls/hr IV .Q1H ONE Stop: 10/08/21 13:16 Last Admin: 10/08/21 12:38 Dose: 1,011.2 mls/hr Documented by: [id number] Lorazepam (Lorazepam 2 Mg/1 Ml Vial) 1 mg IV NOW STA Stop: 10/08/21 12:18 Last Admin: 10/08/21 12:26 Dose: 1 mg Documented by: [id number] ECG Additional Comments: Sinus tachycardia Possible Left atrial enlargement Incomplete right bundle branch block Left anterior fascicular block Left ventricular hypertrophy Abnormal ECG No previous ECGs available Code Status & VTE Plan Code Status CODE: FULL VTE: SCDS, Heparin 5000 units subq q TID VTE Prophylaxis Plan VTE Prophylaxis will be ordered: Yes Supervising Physician Co-Signing Physician Notes Patient seen and examined at bedside. Obtained a history and physical examination during my face to face encounter. I reviewed above note and agree with it. D/W Patient and [facility], plan of care and answered of there questions. Patient admitted for alcohol withdrawal will treat with benzos PG Care Time/CCT Total # of Minutes Spent Total Time Spent with Patient: Total time spent is greater than 50% in coordination of care (as documented) at patient's floor/unit and/or counseling patient: Coding Level of Care Code 56715 Initial Inpt Care Lvl 3 Diagnoses Alcohol withdrawal syndrome F10.239 Complication of substance-induced condition: with unspecified complication Urinary tract infection N39.0; R31.9 Hematuria presence: with hematuria Urinary tract infection type: site unspecified Depression with suicidal ideation F32.A; R45.851 Encephalopathy G93.40 Anxiety F41.9 Elevated random blood glucose level R73.09 Pancreatitis K85.90 Metabolic alkalosis E87.3 Hypophosphatemia E83.39 Hepatitis K75.9 (1) Urinary tract infection Hematuria presence: with hematuria Urinary tract infection type: site unspecified Qualified Code(s): N39.0 - Urinary tract infection, site not specified; R31.9 - Hematuria, unspecified (2) Alcohol withdrawal syndrome Complication of substance-induced condition: with unspecified complication Qualified Code(s): F10.239 - Alcohol dependence with withdrawal, unspecified
[2021-10-08 13:50] LABS: C Reactive Protein 2.32 mg/dl (0-0.5); Chol HDL Ratio 1.7 (0-5); Phosphorus 1.9 mg/dl (2.5-4.9)
[2021-10-08] MEDS ORDERED: POTASSIUM PHOS 3 MMOL/1 ML INFUSION IV STA (14:04)
[2021-10-08] MEDS ORDERED: POTASSIUM PHOSPHATE 15 MMOL in DEXTROSE 5% 250 ML IV ONE (14:15)
[2021-10-08 14:22] LABS: Albumin Level 3.8 gm/dl (3.4-5.0); Bilirubin Direct 1.8 mg/dl (0-0.2); Total Protein 6.5 gm/dl (6.0-8.3)
[2021-10-08] MEDS ORDERED: GLUCOSE 10 TABS/TUBE PO PRN (15:17)
[2021-10-08] MEDS ORDERED: ATIVAN IV ALCOHOL WITHDRAWL IV PRN (15:17)
[2021-10-08] MEDS ORDERED: GLUCOSE 40% GEL 15 GM TUBE PO PRN (15:17)
[2021-10-08] MEDS ORDERED: CARBOHYDRATES FOR HYPOGLYCEMIA PO PRN (15:17)
[2021-10-08] MEDS ORDERED: GLUCAGON FOR INJ 1 MG VIAL SQ PRN (15:17)
[2021-10-08] MEDS ORDERED: DEXTROSE 50% 50 ML SYRINGE IV PRN (15:17)
[2021-10-08] MEDS ORDERED: LORazepam 1 MG TAB PO PRN (15:17)
[2021-10-08] MEDS: INSULIN ASPART PER UNIT SC SCH ×2 (16:57→22:18)
[2021-10-08] MEDS: HEPARIN SOD 5,000 UNIT/0.5 ML VIAL SQ SCH ×2 (17:06→22:19)
--- NOTE | 2021-10-08 18:13 | Electrocardiogram Report ---
Test Reason : Blood Pressure : / mmHG Vent. Rate : 104 BPM Atrial Rate : 104 BPM P-R Int : 142 ms QRS Dur : 100 ms QT Int : 382 ms P-R-T Axes : 055 -67 050 degrees QTc Int : 502 ms Sinus tachycardia Possible Left atrial enlargement Incomplete right bundle branch block Left anterior fascicular block Left ventricular hypertrophy Abnormal ECG No previous ECGs available Confirmed by Marcial Tejada ([id number]) on 10/08/2021 6:13:17 PM Referred By: Confirmed By:Nahid Tejada
[2021-10-08] MEDS: LACTATED RINGER'S 1,000 ML IV SCH (18:49)
[2021-10-08] MEDS: THIAMINE HCL 500 MG in SODIUM CHLORIDE 0.9% 50 ML IV SCH (18:49)
[2021-10-08] MEDS: busPIRone 15 MG TAB PO SCH (22:19)
[2021-10-08] MEDS: PANTOprazole 40 MG in SYRINGE 0 ML IV SCH (22:19)
[2021-10-08] MEDS: LORazepam 2 MG/1 ML VIAL IV PRN (22:42)
[2021-10-09] MEDS: THIAMINE HCL 500 MG in SODIUM CHLORIDE 0.9% 50 ML IV SCH ×3 (03:54→15:55)
[2021-10-09] MEDS: LACTATED RINGER'S 1,000 ML IV SCH ×3 (03:55→20:04)
[2021-10-09] MEDS: HEPARIN SOD 5,000 UNIT/0.5 ML VIAL SQ SCH ×3 (04:47→20:44)
--- NOTE | 2021-10-09 07:40 | Magnetic Resonance Report ---
MRCP CLINICAL HISTORY: Abdominal pain, nausea and vomiting. Evaluate for gallstones/or biliary blockage . TECHNIQUE: Utilizing a 1.5 [place] magnet and dedicated coil, multiplanar, multiecho imaging of the [facility] abdomen was performed utilizing heavily T2 weighted pulsing sequences without IV contrast. COMPARISON STUDY: CT of the abdomen and pelvis the 2021. FINDINGS: Severe hepatic steatosis is better depicted on the abdominal CT of October 08, 2021. The liver is enlarged, measuring 22 cm in craniocaudal dimension. Evaluation for hepatic lesions is suboptimal on this unenhanced exam. However, several T2 hyperintense hepatic lesions favor cysts. These measure up to 1.2 cm. There is no intra or extrahepatic biliary ductal dilatation. Common bile duct measures 5 mm in caliber. There are no common bile duct calculi. Course and caliber of the main pancreatic deborah t is normal. There is no peripancreatic fluid. No peripancreatic fluid collection is present. The gal lbladder is unremarkable on this exam. No gallstones are identified. There is no pericholecystic flui d. Unenhanced images of the spleen, adrenal glands and kidneys are unremarkable. Is no hydronephrosis . No abdominal lymphadenopathy or ascites. Caliber of visualized small and large bowel are normal. IMPRESSION: 1. Severe hepatic steatosis, better depicted on CT. Hepatomegaly. 2. No biliary ductal dilatation. No common bile duct calculi. 2. No gallstones identified. ACT 112: Negative or not required by law. Electronically signed by: Александр Bernardo M.D. 10/09/2021 7:39 AM
[2021-10-09] MEDS: INSULIN ASPART PER UNIT SC SCH ×4 (07:54→21:00)
[2021-10-09] MEDS: PANTOprazole 40 MG in SYRINGE 0 ML IV SCH ×2 (07:55→20:44)
[2021-10-09] MEDS: cefTRIAXone SODIUM 1,000 MG in DEXTROSE 5% 50 ML IV SCH (07:55)
[2021-10-09] MEDS: FOLIC ACID 1 MG TAB PO SCH (07:56)
[2021-10-09] MEDS: amLODIPine BESYLATE 5 MG TAB PO SCH (07:56)
[2021-10-09] MEDS: lisinopril 10 MG TAB PO SCH (07:56)
[2021-10-09] MEDS: busPIRone 15 MG TAB PO SCH (07:56)
[2021-10-09] MEDS: ESCITALOPRAM OXALATE 20 MG TAB PO SCH (07:56)
[2021-10-09 08:00] LABS: Basophils # (auto) 0.02 K/uL (0-0.2); Basophils % (auto) 0.3 %; Eosinophils # (auto) 0.03 K/uL (0-0.5); Eosinophils % (auto) 0.5 %; Hematocrit (blood only) 33.6 % (37-47); Hemoglobin 11.2 g/dL (12.0-16.0); Immature Granulocytes # (auto) 0.06 K/uL (0.00-0.02); Lymphocytes # (auto) 1.47 K/uL (1.2-3.4); Lymphocytes % (auto) 25.1 %; Mean Corpuscular Hemoglobin 30.1 pg (25-34); Mean Corpuscular Hgb Conc 33.3 g/dL (32-36); Mean Corpuscular Volume 90.3 fL (80-100); Mean Platelet Volume 10.1 fL (7.4-10.4); Monocytes % (auto) 8.5 %; Neutrophils # (auto) 3.78 K/uL (1.4-6.5); Neutrophils % (auto) 64.6 %; Platelet Count 121 K/uL (130-400); RDW Coefficient of Variation 13.8 % (11.5-14.5); RDW Standard Deviation 45.9 fL (36.4-46.3); Red Blood Count 3.72 M/uL (4.2-5.4); White Blood Count 5.86 K/uL (4.8-10.8)
[2021-10-09 08:12] LABS: BUN Creatinine Ratio 22.9 (10-20); Calcium 8.7 mg/dl (8.5-10.1); Creatinine Clr Calc Pharmacy 73.1 ml/min; Magnesium 1.8 mg/dl (1.7-2.4); Phosphorus 1.7 mg/dl (2.5-4.9); Potassium 3.5 mmol/L (3.5-5.1)
[2021-10-09] MEDS ORDERED: PANTOprazole 40 MG TAB PO SCH (09:00)
[2021-10-09] MEDS: LORazepam 2 MG/1 ML VIAL IV PRN ×6 (09:09→20:40)
--- NOTE | 2021-10-09 11:41 | Psychiatric Consultation ---
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 IV DAILY KEVIN; Protocol Stop: 10/14/21 08:59 Last Infusion: 10/09/21 08:37 Dose: 0 mls/hr Documented by: [id number] Admin: 10/09/21 07:55 Dose: 100 mls/hr Documented by: [id number] Pantoprazole Sodium 40 mg/ (Syringe) 10 mls @ 5 mls/min IV BID [facility] Stop: 11/07/21 20:59 Last Admin: 10/09/21 07:55 Dose: 5 mls/min Documented by: [id number] Admin: 10/08/21 22:19 Dose: 5 mls/min Documented by: [id number] Insulin Aspart (Insulin Aspart Per Unit) 0 units SC ACHS [facility] Stop: 11/07/21 16:29 Last Admin: 10/09/21 07:54 Dose: Not Given Documented by: [id number] Admin: 10/08/21 22:18 Dose: Not Given Documented by: [id number] Cosigned by: [id number] Admin: 10/08/21 16:57 Dose: 2 units Documented by: [id number] Cosigned by: [id number] Lisinopril (Lisinopril 10 Mg Tab) 10 mg PO DAILY [facility] Stop: 11/08/21 08:59 Last Admin: 10/09/21 07:56 Dose: 10 mg Documented by: [id number] Lorazepam (Lorazepam 2 Mg/1 Ml Vial) 1 mg IV UD PRN; Protocol PRN Reason: EtOH Withdrawl AWSS Score 6,7 Stop: 11/07/21 15:16 Last Admin: 10/09/21 09:09 Dose: 1 mg Documented by: [id number] Admin: 10/08/21 22:42 Dose: 1 mg Documented by: [id number] Lorazepam (Lorazepam 2 Mg/1 Ml Vial) 3 mg IV ONCE PRN; Protocol PRN Reason: EtOH Withdrawl AWSS Score >=10 Stop: 11/07/21 15:16 Last Admin: 10/09/21 10:27 Dose: 3 mg Documented by: [id number] Coding Level of Care Code 74508 [facility] Intl Hosp Care Lvl 2 Diagnoses Alcohol withdrawal syndrome F10.239 Complication of substance-induced condition: with unspecified complication Depression with suicidal ideation F32.A; R45.851
--- NOTE | 2021-10-09 17:19 | Hospitalist Progress Note ---
Date of Service October 09, 2021 Assessment & Plan (1) Alcohol withdrawal syndrome: Plan: Overall patient states she only drinks 1 beer per day and 1 shot of demetri- last drink was this morning with demetri shot - her ETOH level on admission is <10 - Reportedly found with empty "handles" of liquor in her room - Given 1mg of Ativan by EMD - She is encephalopathic- her tachy cardia and htn are improved - continue with AWWS score and treatment with benzodiazepines- further treatment based off LFTs - Continue Thiamine 500mg IV TID - Folic acid qam - Urine tox screen positive for MDMA- is on Trazodone await for confirmatory on 10/09 Patient continues to confused and going through withdrawal. continue AWSS (2) Urinary tract infection: Plan: Urine with bacteria- ketones, blood, bilirubin - Given 1 dose of Rocephin in EMD- will continue with pending cultures - patient denies symptoms (3) Pancreatitis: Plan: Lipase 477 with epigastric pain- without elevated WBC or fevers in the setting of alcohol misuse/abuse - Continue with IV hydration LR 100- guide therapy to UO - already received 2 liters of fluid in the EMD- with banana bag and liter of saline - BISAP score- 4- mild elevation of BUN and tachycardia and HTN are resolving with fluid administration and Ativan dosing - will obtain CT scan of abd/pelvis for evaluation of liver/gallbladder/pancreas- - Lipid panel pending - LFTs pending - glucose 195 - Check iCA/Phos/Mag - Low fat carb consistent diet- return to clears if pain with eating (4) Hepatitis: Plan: Likely related to acholic hepatitis- with Jaundice- or onset of cirrhosis with noted severe hepatsteatosis - INR normal - WBC normal- PCT negative - will obtain CT abdomen and pelvis to evaluate liver/pancreas/gallbladder- MRCP if needed - supportive care as above (5) Depression with suicidal ideation: Plan: History of Depression and anxiety- PCP notes just note that she sees a psych provider - She reports cutting herself 2 days ago- but got scared and stopped- she has horizontal cuts to her right wrist x2- not infected looking - She does endorse worsening of her depression to the point it has caused strain on her relationship with daughters - Admit with suicide precautions and psych consultation- appreciate assistance - Continue her Lexapro, trazodone PRN at night - Will hold he Hydroxyzine for today and follow with overall benzodiazepine dosing for her likely ETOH withdraw (6) Encephalopathy: Plan: Metabolic vs. Wernicke's - Without nystagmus - No deficits - Oriented but with slurring speech (7) Metabolic alkalosis: Plan: PH 7.55 with HCo3 33- with elevated BUN - likely in the setting of hypovolemia secondary to encephalopathy, UTI, pancreatitis, and ETOH use/ketosis - Continue with IVF resuscitation - Follow HCo3 and urine output (8) Anxiety: Plan: As above (9) Elevated random blood glucose level: Plan: Without diagnosis of DM - will place on sliding scale aspart insulin- without carb ratio until oral intake is stable - Goal < 180mg/dl (10) Hypophosphatemia: Plan: As above - replete - K phos Admission and Anticipated Discharge Date Admission Date: October 08, 2021 Subjective Patient reemains confused. Review of Systems Review of Systems: All systems reviewed & are unremarkable except as noted in HPI & below Physical Exam Physical Exam: General: awake, appropriate, but with slow responses and poor ability to connect sentences and thoughts Head: Normocephalic, atraumatic ENT: Sclera jaundiced, PERRL, EOMI, no pharyngeal exudate, mucous membranes moist Neuro: AAO x 3, speech garbled but understandable, strength intact bilaterally 5/5, sensation intact and equal all extremities and dermatomes, no pronator drift,tremors without atxia Chest: equal rise and fall of the chest, no accessory muscle use, no heaves or thrills, Clear to auscultation, on room air, Cardiac: Regular rate and rhythm, telemetry reviewed, skin warm dry, cap refill <3 seconds, peripheral pulses +2 no JVD, no murmur, no JVD, no edema GI: epigastric bird and pain to luq with palpation, NABS x 4 quadrants, soft, no rebound, guarding : Spontaneously voiding, no pain, no CVA tenderness, Extremities: Normal inspection, no peripheral edema or erythema, calfs nontender to palpation Psych wait for encephalopathy to clear Skin: cuts to right wrist Results & Data Results & Data ([facility]) Vital Signs (Past 12 Hours) Vital Signs Pulse Pulse Resp Pulse Ox 10/09/21 15:17 94 H 22 100 05/21/22 14:54 91 H PG Care Time/CCT Total # of Minutes Spent Total Time Spent with Patient: Total time spent is greater than 50% in coordination of care (as documented) at patient's floor/unit and/or counseling patient: Coding Level of Care Code 09224 Subseq Hosp Care Lvl 2 Diagnoses Alcohol withdrawal syndrome F10.239 Complication of substance-induced condition: with unspecified complication Urinary tract infection N39.0; R31.9 Hematuria presence: with hematuria Urinary tract infection type: site unspecified Pancreatitis K85.90 Hepatitis K75.9 Depression with suicidal ideation F32.A; R45.851 Encephalopathy G93.40 Metabolic alkalosis E87.3 Anxiety F41.9 Elevated random blood glucose level R73.09 Hypophosphatemia E83.39 (1) Urinary tract infection Hematuria presence: with hematuria Urinary tract infection type: site unspecified Qualified Code(s): N39.0 - Urinary tract infection, site not specified; R31.9 - Hematuria, unspecified (2) Alcohol withdrawal syndrome Complication of substance-induced condition: with unspecified complication Qualified Code(s): F10.239 - Alcohol dependence with withdrawal, unspecified
[2021-10-10] MEDS: LORazepam 2 MG/1 ML VIAL IV PRN ×2 (02:30→16:50)
[2021-10-10] MEDS: HEPARIN SOD 5,000 UNIT/0.5 ML VIAL SQ SCH ×3 (05:47→21:34)
[2021-10-10] MEDS: LACTATED RINGER'S 1,000 ML IV SCH ×2 (05:47→14:27)
[2021-10-10 06:29] LABS: Basophils # (auto) 0.02 K/uL (0-0.2); Basophils % (auto) 0.4 %; Eosinophils # (auto) 0.09 K/uL (0-0.5); Eosinophils % (auto) 1.6 %; Hematocrit (blood only) 33.6 % (37-47); Hemoglobin 11.3 g/dL (12.0-16.0); Immature Granulocytes # (auto) 0.15 K/uL (0.00-0.02); Immature Granulocytes % (auto) 2.7 %; Lymphocytes # (auto) 1.76 K/uL (1.2-3.4); Lymphocytes % (auto) 31.9 %; Mean Corpuscular Hemoglobin 30.2 pg (25-34); Mean Corpuscular Hgb Conc 33.6 g/dL (32-36); Mean Corpuscular Volume 89.8 fL (80-100); Mean Platelet Volume 9.9 fL (7.4-10.4); Monocytes # (auto) 0.55 K/uL (0.11-0.59); Neutrophils # (auto) 2.94 K/uL (1.4-6.5); Neutrophils % (auto) 53.4 %; Platelet Count 118 K/uL (130-400); RDW Coefficient of Variation 13.7 % (11.5-14.5); RDW Standard Deviation 44.7 fL (36.4-46.3); Red Blood Count 3.74 M/uL (4.2-5.4); White Blood Count 5.51 K/uL (4.8-10.8)
[2021-10-10 06:54] LABS: BUN Creatinine Ratio 16.4 (10-20); Calcium 8.1 mg/dl (8.5-10.1); Creatinine Clr Calc Pharmacy 99.4 ml/min; Est GFR (African American) 111.8 ml/min; Est GFR (Non-African American) 96.5 ml/min; Magnesium 1.7 mg/dl (1.7-2.4); Phosphorus 2.5 mg/dl (2.5-4.9); Potassium 3.2 mmol/L (3.5-5.1)
[2021-10-10] MEDS: INSULIN ASPART PER UNIT SC SCH ×4 (07:45→20:38)
--- NOTE | 2021-10-10 07:45 | Communication Note ---
Date of Service: October 10, 2021 interim progress reviewed, continues to experience withdrawal delirium, was responding to internal stimuli yesterday before lunch per nursing. receiving Ativan for scoring on AWSS, some elevations in BP. When awake restless, pulling at padron. Treatment of choice for delirium due to ETOH remains Ativan (vs Haldol) even with rodriguez. Patient is not combative. No additional recs at this time as should continue 1-on-1 until MS clears to point can reliably assess SI.
[2021-10-10] MEDS: THIAMINE HCL 500 MG in SODIUM CHLORIDE 0.9% 50 ML IV SCH ×4 (08:55→23:11)
[2021-10-10] MEDS: cefTRIAXone SODIUM 1,000 MG in DEXTROSE 5% 50 ML IV SCH (08:55)
[2021-10-10] MEDS: amLODIPine BESYLATE 5 MG TAB PO SCH (08:56)
[2021-10-10] MEDS: PANTOprazole 40 MG in SYRINGE 0 ML IV SCH ×2 (08:56→20:38)
[2021-10-10] MEDS: lisinopril 10 MG TAB PO SCH (08:57)
[2021-10-10] MEDS: FOLIC ACID 1 MG TAB PO SCH (08:57)
[2021-10-10] MEDS: ESCITALOPRAM OXALATE 20 MG TAB PO SCH (08:57)
[2021-10-10] MEDS: POTASSIUM CHLORIDE CRTAB 20 MEQ TABCR PO SCH ×2 (14:26→20:39)
--- NOTE | 2021-10-10 15:04 | Hospitalist Progress Note ---
Date of Service October 10, 2021 Assessment & Plan (1) Alcohol withdrawal syndrome: Plan: Overall patient states she only drinks 1 beer per day and 1 shot of demetri- last drink was this morning with demetri shot - her ETOH level on admission is <10 - Reportedly found with epmty "handles" of liquor in her room -Patient continues to be encephalopathic on 10/10 - continue to give benzos. - continue with AWWS score and treatment with benzodiazepines- - Continue Thiamine 500mg IV TID - Folic acid qam - Urine tox screen positive for MDMA- is on Trazodone await for confirmatory (2) Urinary tract infection: Plan: Urine with bacteria- ketones, blood, bilirubin - Given 1 dose of Rocephin in EMD- will continue with pending cultures - patient denies symptoms (3) Pancreatitis: Plan: Lipase 477 with epigastric pain- without elevated WBC or fevers in the setting of alcohol misuse/abuse - Continue with IV hydration LR 100- guide therapy to UO - already received 2 liters of fluid in the EMD- with banana bag and liter of saline - BISAP score- 4- mild elevation of BUN and tachycardia and HTN are resolving with fluid administration and Ativan dosing - will obtain CT scan of abd/pelvis for evaluation of liver/gallbladder/pancreas- - Lipid panel pending - LFTs pending - glucose 195 - Check iCA/Phos/Mag - Low fat carb consistent diet- return to clears if pain with eating (4) Hepatitis: Plan: Likely related to acholic hepatitis- with Jaundice- or onset of cirrhosis with noted severe hepatsteatosis - INR normal - WBC normal- PCT negative - will obtain CT abdomen and pelvis to evaluate liver/pancreas/gallbladder- MRCP if needed - supportive care as above (5) Depression with suicidal ideation: Plan: History of Depression and anxiety- PCP notes just note that she sees a psych provider - She reports cutting herself 2 days ago- but got scared and stopped- she has horizontal cuts to her right wrist x2- not infected looking - She does endorse worsening of her depression to the point it has caused strain on her relationship with daughters - Admit with suicide precautions and psych consultation- appreciate assistance - Continue her Lexapro, trazodone PRN at night - Will hold he Hydroxyzine for today and follow with overall benzodiazepine dosing for her likely ETOH withdraw (6) Encephalopathy: Plan: Metabolic vs. Wernicke's - Without nystagmus - No deficits - Oriented but with slurring speech (7) Metabolic alkalosis: Plan: PH 7.55 with HCo3 33- with elevated BUN - likely in the setting of hypovolemia secondary to encephalopathy, UTI, pancreatitis, and ETOH use/ketosis - Continue with IVF resuscitation - Follow HCo3 and urine output (8) Anxiety: Plan: As above (9) Elevated random blood glucose level: Plan: Without diagnosis of DM - will place on sliding scale aspart insulin- without carb ratio until oral intake is stable - Goal < 180mg/dl (10) Hypophosphatemia: Plan: As above - replete - K phos Admission and Anticipated Discharge Date Admission Date: October 08, 2021 Subjective Patient continues to be confused. Review of Systems Review of Systems: All systems reviewed & are unremarkable except as noted in HPI & below Physical Exam Physical Exam: General: awake, appropriate, but with slow responses and poor ability to connect sentences and thoughts Head: Normocephalic, atraumatic ENT: Sclera jaundiced, PERRL, EOMI, no pharyngeal exudate, mucous membranes moist Neuro: AAO x 3, speech garbled but understandable, strength intact bilaterally 5/5, sensation intact and equal all extremities and dermatomes, no pronator drift,tremors without atxia Chest: equal rise and fall of the chest, no accessory muscle use, no heaves or thrills, Clear to auscultation, on room air, Cardiac: Regular rate and rhythm, telemetry reviewed, skin warm dry, cap refill <3 seconds, peripheral pulses +2 no JVD, no murmur, no JVD, no edema GI: epigastric bird and pain to luq with palpation, NABS x 4 quadrants, soft, no rebound, guarding : Spontaneously voiding, no pain, no CVA tenderness, Extremities: Normal inspection, no peripheral edema or erythema, calfs nontender to palpation Psych wait for encephalopathy to clear Skin: cuts to right wrist Results & Data Results & Data ([facility]) Vital Signs (Past 12 Hours) Vital Signs Temp Pulse Pulse Resp BP Pulse Ox 10/10/21 11:06 37.0 C 78 20 137/88 92 10/10/21 10:28 70 10/10/21 07:03 37.0 C 74 20 150/91 H 95 10/10/21 04:14 36.9 C 71 15 124/82 96 PG Care Time/CCT Total # of Minutes Spent Total Time Spent with Patient: Total time spent is greater than 50% in coordination of care (as documented) at patient's floor/unit and/or counseling patient: Coding Level of Care Code 54277 Subseq Hosp Care Lvl 2 Diagnoses Alcohol withdrawal syndrome F10.239 Complication of substance-induced condition: with unspecified complication Urinary tract infection N39.0; R31.9 Hematuria presence: with hematuria Urinary tract infection type: site unspecified Pancreatitis K85.90 Hepatitis K75.9 Depression with suicidal ideation F32.A; R45.851 Encephalopathy G93.40 Metabolic alkalosis E87.3 Anxiety F41.9 Elevated random blood glucose level R73.09 Hypophosphatemia E83.39 Time Spent (min) 25 (1) Urinary tract infection Hematuria presence: with hematuria Urinary tract infection type: site unspecified Qualified Code(s): N39.0 - Urinary tract infection, site not specified; R31.9 - Hematuria, unspecified (2) Alcohol withdrawal syndrome Complication of substance-induced condition: with unspecified complication Qualified Code(s): F10.239 - Alcohol dependence with withdrawal, unspecified
[2021-10-10] MEDS: traZODone HCL 100 MG TAB PO PRN (23:38)
[2021-10-11] MEDS: LACTATED RINGER'S 1,000 ML IV SCH ×3 (00:35→20:07)
[2021-10-11] MEDS: BENZONATATE 100 MG CAPSULE PO PRN ×2 (00:35→21:42)
[2021-10-11] MEDS: HEPARIN SOD 5,000 UNIT/0.5 ML VIAL SQ SCH ×3 (05:12→21:42)
[2021-10-11] MEDS: INSULIN ASPART PER UNIT SC SCH ×4 (08:15→22:02)
[2021-10-11] MEDS: FOLIC ACID 1 MG TAB PO SCH (08:24)
[2021-10-11] MEDS: amLODIPine BESYLATE 5 MG TAB PO SCH (08:24)
[2021-10-11] MEDS: POTASSIUM CHLORIDE CRTAB 20 MEQ TABCR PO SCH (08:24)
[2021-10-11] MEDS: ESCITALOPRAM OXALATE 20 MG TAB PO SCH (08:24)
[2021-10-11] MEDS: lisinopril 10 MG TAB PO SCH (08:24)
[2021-10-11] MEDS: PANTOprazole 40 MG in SYRINGE 0 ML IV SCH ×2 (08:25→21:42)
[2021-10-11] MEDS: THIAMINE HCL 500 MG in SODIUM CHLORIDE 0.9% 50 ML IV SCH ×3 (08:25→23:36)
[2021-10-11 08:33] LABS: Basophils # (auto) 0.04 K/uL (0-0.2); Basophils % (auto) 0.8 %; Eosinophils # (auto) 0.12 K/uL (0-0.5); Eosinophils % (auto) 2.3 %; Hematocrit (blood only) 32.9 % (37-47); Hemoglobin 11.6 g/dL (12.0-16.0); Immature Granulocytes # (auto) 0.22 K/uL (0.00-0.02); Immature Granulocytes % (auto) 4.2 %; Lymphocytes # (auto) 1.59 K/uL (1.2-3.4); Mean Corpuscular Hemoglobin 31.4 pg (25-34); Mean Corpuscular Hgb Conc 35.3 g/dL (32-36); Mean Corpuscular Volume 89.2 fL (80-100); Mean Platelet Volume 9.7 fL (7.4-10.4); Monocytes # (auto) 0.69 K/uL (0.11-0.59); Neutrophils # (auto) 2.64 K/uL (1.4-6.5); Neutrophils % (auto) 49.7 %; Nucleated RBC # (auto) 0.04 K/uL (0-0); Nucleated RBC % (auto) 0.7 %; Platelet Count 134 K/uL (130-400); RDW Coefficient of Variation 13.7 % (11.5-14.5); RDW Standard Deviation 44.3 fL (36.4-46.3); Red Blood Count 3.69 M/uL (4.2-5.4)
[2021-10-11 09:13] LABS: BUN Creatinine Ratio 12.9 (10-20); Calcium 8.6 mg/dl (8.5-10.1); Creatinine Clr Calc Pharmacy 97.7 ml/min; Est GFR (African American) 111.2 ml/min; Magnesium 1.8 mg/dl (1.7-2.4); Phosphorus 3.3 mg/dl (2.5-4.9)
[2021-10-11] MEDS: cefTRIAXone SODIUM 1,000 MG in DEXTROSE 5% 50 ML IV SCH (09:27)
--- NOTE | 2021-10-11 13:13 | Psychiatric Progress Note ---
Date of Service October 11, 2021 Impression / Recommendations Impression Vivian is a 61 yo female with recent worsening of depression and alcohol abuse, recent SIB, possible suicide attempt with ongoing AMS, tremor, QTc. Weight loss likely related to pancreatitis and alcohol but no recent TSH on chart. As she was found confused/incontinent after spending time in car withdrawal seizure and/or OD of serotonergic agents should remain in differential. Unclear if tremor and possible clonus withdrawal vs. possible serotonin syndrome. 10/11/21: as per initial consult (1) Alcohol withdrawal syndrome: (2) Depression with suicidal ideation: at this point she is amenable to a 201 commiment when medically cleared, Dr. Garcia updated as she should remain 1-on-1 as not in a secure, low ligature risk environment. PT is assessing patient as must ambulate without assist device. Continue Lexapro as ordered, will address other psych meds upon medical clearance. Risk Factors Assessment Do You Have Access To A Gun?: No Interval History Identifying Information 61 YOF with medical history of: Anxiety/Depression, HTN, current smoker. Patient was found at home on day of admission with AMS and found to also have UTI and pancreatitis. Chief Complaint "I don't feel safe outside of here". Review of Systems Notes states she feels weak, shakey, "nothing is better" Subjective Subjective Patient was seen & assessed and interval progress reviewed. Continues with 1-on-1 at bedside. Continues to present as quite depressed, clearer mental status but either avoidant or slow to respond. She is not able to explain her presentation or behavior. States she sits in car to listen to music for soothing effect. Continues to deny ETOH use. Admits has been feeling depressed but won't elaborate. Believes she can't walk well enough to function outside of "here". PT assessment pending. States that things have been "off" since last med change but can't elaborate. She is somewhat gamey around questions around SI. Physical Exam Psychiatric Orientation: alert, oriented to person and oriented to place Apperance: appropriately groomed Eye Contact: + fair eye contact Motor Behavior: + tremor Speech: + abnormal rate/rhythm/volume of speech Affect: + depressed affect Mood: + depressed mood Thought Process: + tangential thought process and + concrete thought process Thought Content: reality based without delusions (can't exclude paranoia) Suicidal Thoughts: denies suicidal thoughts yet unable to contract for safety Homicidal Thoughts: denies homicidal thoughts Hallucinations: no auditory hallucinations and no visual hallucinations Cognition: language grossly intact; + attention not intact Estimated Intelligence: consistent with education level Insight: + limited insight Judgement: + limited judgement Vital Signs (Past 24 Hours) Last Vital Signs Temp 36.9 C 10/11/21 07:17 Pulse 88 10/11/21 07:17 Resp 20 10/11/21 07:17 BP 134/87 10/11/21 07:17 Pulse Ox 92 10/11/21 07:17 Results & Data ([facility]) Laboratory Results Laboratory Results - last 24 hr 10/09/21 10/10/21 10/10/21 06:42 16:34 20:18 WBC RBC Hgb Hct MCV MCH MCHC RDW Std Deviation RDW Coeff of Julius Plt Count MPV Immature Gran % (Auto) Neut % (Auto) Lymph % (Auto) [place] % (Auto) Eos % (Auto) Baso % (Auto) Neut # (Auto) Lymph # (Auto) [place] # (Auto) Eos # (Auto) Baso # (Auto) Immature Gran # (Auto) Absolute Nucleated RBC Nucleated RBC % (auto) Sodium Potassium Chloride Carbon Dioxide Anion Gap BUN Creatinine Est Cr Clr Drug Dosing Est GFR ( Amer) Est GFR (Non-Af Amer) BUN/Creatinine Ratio Glucose POC Glucose 104 H 94 Calcium Phosphorus Magnesium Hepatitis C Ab (EIA) NON-REACTIVE Hep C Ab Signal/Cutoff 0.01 10/11/21 10/11/21 10/11/21 07:31 07:54 07:54 WBC 5.30 RBC 3.69 L Hgb 11.6 L Hct 32.9 L MCV 89.2 MCH 31.4 MCHC 35.3 RDW Std Deviation 44.3 RDW Coeff of Julius 13.7 Plt Count 134 MPV 9.7 Immature Gran % (Auto) 4.2 Neut % (Auto) 49.7 Lymph % (Auto) 30.0 [place] % (Auto) 13.0 Eos % (Auto) 2.3 Baso % (Auto) 0.8 Neut # (Auto) 2.64 Lymph # (Auto) 1.59 [place] # (Auto) 0.69 H Eos # (Auto) 0.12 Baso # (Auto) 0.04 Immature Gran # (Auto) 0.22 H Absolute Nucleated RBC 0.04 H Nucleated RBC % (auto) 0.7 Sodium 135 L Potassium Chloride 100 Carbon Dioxide 23 Anion Gap 12 H BUN 8 Creatinine 0.62 Est Cr Clr Drug Dosing 97.7 Est GFR ( Amer) 111.2 Est GFR (Non-Af Amer) 96.0 BUN/Creatinine Ratio 12.9 Glucose 91 POC Glucose 98 Calcium 8.6 Phosphorus 3.3 Magnesium 1.8 Hepatitis C Ab (EIA) Hep C Ab Signal/Cutoff 10/11/21 10/11/21 09:26 11:29 WBC RBC Hgb Hct MCV MCH MCHC RDW Std Deviation RDW Coeff of Julius Plt Count MPV Immature Gran % (Auto) Neut % (Auto) Lymph % (Auto) [place] % (Auto) Eos % (Auto) Baso % (Auto) Neut # (Auto) Lymph # (Auto) [place] # (Auto) Eos # (Auto) Baso # (Auto) Immature Gran # (Auto) Absolute Nucleated RBC Nucleated RBC % (auto) Sodium Potassium 3.8 Chloride Carbon Dioxide Anion Gap BUN Creatinine Est Cr Clr Drug Dosing Est GFR ( Amer) Est GFR (Non-Af Amer) BUN/Creatinine Ratio Glucose POC Glucose 105 H Calcium Phosphorus Magnesium Hepatitis C Ab (EIA) Hep C Ab Signal/Cutoff Current Inpatient Medications Current Inpatient Medications: Current Inpatient Medications Amlodipine Besylate (Amlodipine Besylate 5 Mg Tab) 5 mg PO DAILY KEVIN Stop: 11/08/21 08:59 Last Admin: 10/11/21 08:24 Dose: 5 mg Documented by: Benzonatate (Benzonatate 100 Mg Capsule) 100 mg PO BID PRN PRN Reason: cough Stop: 11/10/21 00:25 Last Admin: 10/11/21 00:35 Dose: 100 mg Documented by: Buspirone HCl (Buspirone 15 Mg Tab) 15 mg PO BID KEVIN Stop: 11/07/21 20:59 Last Admin: 10/09/21 07:56 Dose: 15 mg Documented by: Dextrose (Dextrose 50% 50 Ml Syringe) 25 - 50 ml IV UD PRN; Protocol PRN Reason: Hypoglycemia Protocol Stop: 11/07/21 15:16 Escitalopram Oxalate (Escitalopram Oxalate 20 Mg Tab) 20 mg PO DAILY KEVIN Stop: 11/08/21 08:59 Last Admin: 10/11/21 08:24 Dose: 20 mg Documented by: Folic Acid (Folic Acid 1 Mg Tab) 1 mg PO QAM KEVIN Stop: 11/08/21 08:59 Last Admin: 10/11/21 08:24 Dose: 1 mg Documented by: Glucagon (Glucagon For Inj 1 Mg Vial) 1 mg SQ UD PRN; Protocol PRN Reason: Hypoglycemia Protocol Stop: 11/07/21 15:16 Glucose (Glucose 10 Tabs/Tube) 4 - 8 tabs PO UD PRN; Protocol PRN Reason: Hypoglycemia Protocol Stop: 11/07/21 15:16 Glucose (Glucose 40% Gel 15 Gm Tube) 15 - 30 gm PO UD PRN; Protocol PRN Reason: Hypoglycemia Protocol Stop: 11/07/21 15:16 Heparin Sodium (Porcine) (Heparin Sod 5,000 Unit/0.5 Ml Vial) 5,000 units SQ Q8 KEVIN Stop: 11/07/21 15:29 Last Admin: 10/11/21 05:12 Dose: 5,000 units Documented by: Lactated Ringer's (Lr) 1,000 mls @ 100 mls/hr IV .Q10H KEVIN Stop: 11/07/21 13:57 Last Admin: 10/11/21 10:07 Dose: 100 mls/hr Documented by: Thiamine HCl 500 mg/ Sodium (Chloride) 55 mls @ 220 mls/hr IV Q8H [facility] Stop: 11/07/21 15:59 Last Infusion: 10/11/21 09:24 Dose: Infused Documented by: Ceftriaxone Sodium 1,000 mg/ (Dextrose) 60 mls @ 100 mls/hr IV DAILY [facility]; Protocol Stop: 10/14/21 08:59 Last Infusion: 10/11/21 10:12 Dose: Infused Documented by: Pantoprazole Sodium 40 mg/ (Syringe) 10 mls @ 5 mls/min IV BID KEVIN Stop: 11/07/21 20:59 Last Admin: 10/11/21 08:25 Dose: 5 mls/min Documented by: Insulin Aspart (Insulin Aspart Per Unit) 0 units SC ACHS [facility] Stop: 11/07/21 16:29 Last Admin: 10/11/21 11:42 Dose: Not Given Documented by: Lisinopril (Lisinopril 10 Mg Tab) 10 mg PO DAILY KEVIN Stop: 11/08/21 08:59 Last Admin: 10/11/21 08:24 Dose: 10 mg Documented by: Lorazepam (Lorazepam 1 Mg Tab) 1 - 3 mg PO UD PRN; Protocol PRN Reason: EtoH Withdrawal AWSS 6-10+ Stop: 11/07/21 15:16 Lorazepam (Lorazepam 2 Mg/1 Ml Vial) 1 mg IV UD PRN; Protocol PRN Reason: EtOH Withdrawl AWSS Score 6,7 Stop: 11/07/21 15:16 Last Admin: 10/10/21 16:50 Dose: 1 mg Documented by: Lorazepam (Lorazepam 2 Mg/1 Ml Vial) 2 mg IV UD PRN; Protocol PRN Reason: EtOH Withdrawl AWSS Score 8,9 Stop: 11/07/21 15:16 Last Admin: 10/10/21 02:30 Dose: 2 mg Documented by: Lorazepam (Lorazepam 2 Mg/1 Ml Vial) 3 mg IV ONCE PRN; Protocol PRN Reason: EtOH Withdrawl AWSS Score >=10 Stop: 11/07/21 15:16 Last Admin: 10/09/21 16:11 Dose: 3 mg Documented by: Miscellaneous (Carbohydrates For Hypoglycemia ) 15 - 30 gm PO UD PRN PRN Reason: Hypoglycemia Protocol Stop: 11/07/21 15:16 Trazodone HCl (Trazodone Hcl 100 Mg Tab) 200 mg PO HS PRN PRN Reason: sleep/anxiety Stop: 11/07/21 15:16 Last Admin: 10/10/21 23:38 Dose: 200 mg Documented by: (1) Alcohol withdrawal syndrome Complication of substance-induced condition: with unspecified complication Qualified Code(s): F10.239 - Alcohol dependence with withdrawal, unspecified
--- NOTE | 2021-10-11 13:48 | Hospitalist Progress Note ---
Date of Service October 11, 2021 Assessment & Plan (1) Alcohol withdrawal syndrome: Plan: Overall patient states she only drinks 1 beer per day and 1 shot of demetri- last drink was this morning with demetri shot - her ETOH level on admission is <10 - Reportedly found with epmty "handles" of liquor in her room -Patient continues to be encephalopathic on 10/10 - continue to give benzos. - continue with AWWS score and treatment with benzodiazepines- - Continue Thiamine 500mg IV TID - Folic acid qam - Urine tox screen positive for MDMA- is on Trazodone await for confirmatory -Patient is more awake on 10/11 -PT/OT recommends rehab. -will need to discuss with psych discharge planning. (2) Urinary tract infection: Plan: Urine with bacteria- ketones, blood, bilirubin - Given 1 dose of Rocephin in EMD- will continue: shows pansensitive E.coli - patient denies symptoms (3) Pancreatitis: Plan: Lipase 477 with epigastric pain- without elevated WBC or fevers in the setting of alcohol misuse/abuse - Continue with IV hydration LR 100- guide therapy to UO - already received 2 liters of fluid in the EMD- with banana bag and liter of saline - BISAP score- 4- mild elevation of BUN and tachycardia and HTN are resolving with fluid administration and Ativan dosing - will obtain CT scan of abd/pelvis for evaluation of liver/gallbladde r/pancreas- - Lipid panel pending - LFTs pending - glucose 195 - Check iCA/Phos/Mag - Low fat carb consistent diet- return to clears if pain with eating (4) Hepatitis: Plan: Likely related to acholic hepatitis- with Jaundice- or onset of cirrhosis with noted severe hepatsteatosis - INR normal - WBC normal- PCT negative - will obtain CT abdomen and pelvis to evaluate liver/pancreas/gallbladder- MRCP if needed - supportive care as above (5) Depression with suicidal ideation: Plan: History of Depression and anxiety- PCP notes just note that she sees a psych provider - She reports cutting herself 2 days ago- but got scared and stopped- she has horizontal cuts to her right wrist x2- not infected looking - She does endorse worsening of her depression to the point it has caused strain on her relationship with daughters - Admit with suicide precautions and psych consultation- appreciate assistance - Continue her Lexapro, trazodone PRN at night - Will hold he Hydroxyzine for today and follow with overall benzodiazepine dosing for her likely ETOH withdraw (6) Encephalopathy: Plan: Metabolic vs. Wernicke's - Without nystagmus - No deficits - Oriented but with slurring speech (7) Metabolic alkalosis: Plan: PH 7.55 with HCo3 33- with elevated BUN - likely in the setting of hypovolemia secondary to encephalopathy, UTI, pancreatitis, and ETOH use/ketosis - Continue with IVF resuscitation - Follow HCo3 and urine output (8) Anxiety: Plan: As above (9) Elevated random blood glucose level: Plan: Without diagnosis of DM - will place on sliding scale aspart insulin- without carb ratio until oral intake is stable - Goal < 180mg/dl (10) Hypophosphatemia: Plan: As above - replete - K phos Admission and Anticipated Discharge Date Admission Date: October 08, 2021 Subjective Patient is more awake but is a poor historian. Review of Systems Review of Systems: All systems reviewed & are unremarkable except as noted in HPI & below Physical Exam Physical Exam: General: awake, appropriate, but with slow responses and poor ability to connect sentences and thoughts Head: Normocephalic, atraumatic ENT: Sclera jaundiced, PERRL, EOMI, no pharyngeal exudate, mucous membranes moist Neuro: AAO x 3, speech garbled but understandable, strength intact bilaterally 5/5, sensation intact and equal all extremities and dermatomes, no pronator drift,tremors without atxia Chest: equal rise and fall of the chest, no accessory muscle use, no heaves or thrills, Clear to auscultation, on room air, Cardiac: Regular rate and rhythm, telemetry reviewed, skin warm dry, cap refill <3 seconds, peripheral pulses +2 no JVD, no murmur, no JVD, no edema GI: epigastric bird and pain to luq with palpation, NABS x 4 quadrants, soft, no rebound, guarding : Spontaneously voiding, no pain, no CVA tenderness, Extremities: Normal inspection, no peripheral edema or erythema, calfs nontender to palpation Psych wait for encephalopathy to clear Skin: cuts to right wrist Results & Data Results & Data ([facility]) Vital Signs (Past 12 Hours) Vital Signs Temp Pulse Resp BP Pulse Ox 10/11/21 07:17 36.9 C 88 20 134/87 92 PG Care Time/CCT Total # of Minutes Spent Total Time Spent with Patient: Total time spent is greater than 50% in coordination of care (as documented) at patient's floor/unit and/or counseling patient: Coding Level of Care Code 19742 Subseq Hosp Care Lvl 2 Diagnoses Alcohol withdrawal syndrome F10.239 Complication of substance-induced condition: with unspecified complication Urinary tract infection N39.0; R31.9 Hematuria presence: with hematuria Urinary tract infection type: site unspecified Pancreatitis K85.90 Hepatitis K75.9 Depression with suicidal ideation F32.A; R45.851 Encephalopathy G93.40 Metabolic alkalosis E87.3 Anxiety F41.9 Elevated random blood glucose level R73.09 Hypophosphatemia E83.39 (1) Urinary tract infection Hematuria presence: with hematuria Urinary tract infection type: site unspecified Qualified Code(s): N39.0 - Urinary tract infection, site not specified; R31.9 - Hematuria, unspecified (2) Alcohol withdrawal syndrome Complication of substance-induced condition: with unspecified complication Qualified Code(s): F10.239 - Alcohol dependence with withdrawal, unspecified
[2021-10-11] MEDS: traZODone HCL 100 MG TAB PO PRN (21:42)
[2021-10-12] MEDS: LACTATED RINGER'S 1,000 ML IV SCH (05:43)
[2021-10-12 07:27] LABS: Hematocrit (blood only) 34.7 % (37-47); Hemoglobin 12.3 g/dL (12.0-16.0); Mean Corpuscular Hemoglobin 31.7 pg (25-34); Mean Corpuscular Hgb Conc 35.4 g/dL (32-36); Mean Corpuscular Volume 89.4 fL (80-100); Mean Platelet Volume 9.8 fL (7.4-10.4); Platelet Count 156 K/uL (130-400); RDW Coefficient of Variation 14.2 % (11.5-14.5); RDW Standard Deviation 46.1 fL (36.4-46.3); Red Blood Count 3.88 M/uL (4.2-5.4); White Blood Count 5.12 K/uL (4.8-10.8)
[2021-10-12] MEDS: THIAMINE HCL 500 MG in SODIUM CHLORIDE 0.9% 50 ML IV SCH ×3 (07:33→22:00)
[2021-10-12] MEDS: PANTOprazole 40 MG in SYRINGE 0 ML IV SCH ×2 (07:42→22:00)
[2021-10-12 07:43] LABS: Albumin Level 3.5 gm/dl (3.4-5.0); BUN Creatinine Ratio 13.6 (10-20); Bilirubin Direct 0.7 mg/dl (0-0.2); Bilirubin,Total 1.5 mg/dl (0.2-1.0); Calcium 8.7 mg/dl (8.5-10.1); Creatinine Clr Calc Pharmacy 91.8 ml/min; Potassium 3.6 mmol/L (3.5-5.1); Total Protein 6.3 gm/dl (6.0-8.3)
[2021-10-12] MEDS: INSULIN ASPART PER UNIT SC SCH ×2 (08:54→11:32)
[2021-10-12] MEDS: HEPARIN SOD 5,000 UNIT/0.5 ML VIAL SQ SCH ×3 (09:00→22:00)
[2021-10-12] MEDS: amLODIPine BESYLATE 5 MG TAB PO SCH (09:01)
[2021-10-12] MEDS: FOLIC ACID 1 MG TAB PO SCH (09:01)
[2021-10-12] MEDS: ESCITALOPRAM OXALATE 20 MG TAB PO SCH (09:01)
[2021-10-12] MEDS: cefTRIAXone SODIUM 1,000 MG in DEXTROSE 5% 50 ML IV SCH (09:01)
[2021-10-12] MEDS: lisinopril 10 MG TAB PO SCH (09:01)
--- NOTE | 2021-10-12 16:06 | Communication Note ---
Date of Service: October 12, 2021 Interim progress reviewed. She is bright and mentally more clear today. She clarified that her statements yesterday about not feeling safe were in the context of some ongoing confusion and mainly worry about her weakness. She has been denying SI and continues to minimize her drinking. Liaison received additional collateral re: amount of recyclables (up to 3 gallons of vodka per week). PT is recommending physical rehab and she has identified facilities with CM. Will discuss aftercare planning. Physical rehab is a supervised setting where she will be abstaining from alcohol and her current physical limitations would limit ability to participate in inpatient mental health. Dr. Peña updated as feel 1-on-1 obs on floor can be discontinued and I do feel patient is psychiatrically stable for discharge to a physical rehab facility.
[2021-10-12] MEDS ORDERED: LORazepam 1 MG TAB PO STA (16:23)
--- NOTE | 2021-10-12 21:17 | Hospitalist Progress Note ---
Date of Service October 12, 2021 Assessment & Plan (1) Alcohol withdrawal syndrome: Plan: Overall patient states she only drinks 1 beer per day and 1 shot of demetri- last drink was this morning with demetri shot - her ETOH level on admission is <10 - Reportedly found with epmty "handles" of liquor in her room -Patient was last encephalopathic on 10/10 - continue with AWWS score and treatment with benzodiazepines- - Continue Thiamine 500mg IV TID - Folic acid qam - Urine tox screen positive for MDMA- is on Trazodone await for confirmatory -Patient is more awake on 10/12 will be off 1 to 1 on 10/12 -PT/OT recommends rehab. -will need to discuss with psych discharge planning. (2) Urinary tract infection: Plan: Urine with bacteria- ketones, blood, bilirubin - Given 1 dose of Rocephin in EMD- will continue: shows pansensitive E.coli - patient denies symptoms (3) Pancreatitis: Plan: Lipase 477 with epigastric pain- without elevated WBC or fevers in the setting of alcohol misuse/abuse - Continue with IV hydration LR 100- guide therapy to UO - already received 2 liters of fluid in the EMD- with banana bag and liter of saline - BISAP score- 4- mild elevation of BUN and tachycardia and HTN are resolving with fluid administration and Ativan dosing - will obtain CT scan of abd/pelvis for evaluation of liver/gallbladder/pancr eas- - Lipid panel pending - LFTs pending - glucose 195 - Check iCA/Phos/Mag - Low fat carb consistent diet- return to clears if pain with eating (4) Hepatitis: Plan: Likely related to acholic hepatitis- with Jaundice- or onset of cirrhosis with noted severe hepatsteatosis - INR normal - WBC normal- PCT negative - will obtain CT abdomen and pelvis to evaluate liver/pancreas/gallbladder- MRCP if needed - supportive care as above (5) Depression with suicidal ideation: Plan: History of Depression and anxiety- PCP notes just note that she sees a psych provider - She reports cutting herself 2 days ago- but got scared and stopped- she has horizontal cuts to her right wrist x2- not infected looking - She does endorse worsening of her depression to the point it has caused strain on her relationship with daughters - Admit with suicide precautions and psych consultation- appreciate assistance - Continue her Lexapro, trazodone PRN at night - Will hold he Hydroxyzine for today and follow with overall benzodiazepine dosing for her likely ETOH withdraw (6) Encephalopathy: Plan: Metabolic vs. Wernicke's - Without nystagmus - No deficits - Oriented but with slurring speech (7) Metabolic alkalosis: Plan: PH 7.55 with HCo3 33- with elevated BUN - likely in the setting of hypovolemia secondary to encephalopathy, UTI, pa ncreatitis, and ETOH use/ketosis - Continue with IVF resuscitation - Follow HCo3 and urine output (8) Anxiety: Plan: As above (9) Elevated random blood glucose level: Plan: Without diagnosis of DM - will place on sliding scale aspart insulin- without carb ratio until oral intake is stable - Goal < 180mg/dl (10) Hypophosphatemia: Plan: As above - replete - K phos Admission and Anticipated Discharge Date Admission Date: October 08, 2021 Subjective Patient is more awake. States she is quitting alcohol. She is not interested in hurting herself. Review of Systems Review of Systems: All systems reviewed & are unremarkable except as noted in HPI & below Physical Exam Physical Exam: General: awake, appropriate, but with slow responses and poor ability to connect sentences and thoughts Head: Normocephalic, atraumatic ENT: Sclera jaundiced, PERRL, EOMI, no pharyngeal exudate, mucous membranes moist Neuro: AAO x 3, speech garbled but understandable, strength intact bilaterally 5/5, sensation intact and equal all extremities and dermatomes, no pronator drift,tremors without atxia Chest: equal rise and fall of the chest, no accessory muscle use, no heaves or thrills, Clear to auscultation, on room air, Cardiac: Regular rate and rhythm, telemetry reviewed, skin warm dry, cap refill <3 seconds, peripheral pulses +2 no JVD, no murmur, no JVD, no edema GI: epigastric bird and pain to luq with palpation, NABS x 4 quadrants, soft, no rebound, guarding : Spontaneously voiding, no pain, no CVA tenderness, Extremities: Normal inspection, no peripheral edema or erythema, calfs nontender to palpation Psych wait for encephalopathy to clear Skin: cuts to right wrist Results & Data Results & Data ([facility]) Vital Signs (Past 12 Hours) Vital Signs Temp Pulse Resp BP Pulse Ox 10/12/21 14:46 36.8 C 78 17 155/96 H 94 PG Care Time/CCT Total # of Minutes Spent Total Time Spent with Patient: Total time spent is greater than 50% in coordination of care (as documented) at patient's floor/unit and/or counseling patient: Coding Level of Care Code 48641 Subseq Hosp Care Lvl 2 Diagnoses Alcohol withdrawal syndrome F10.239 Complication of substance-induced condition: with unspecified complication Urinary tract infection N39.0; R31.9 Hematuria presence: with hematuria Urinary tract infection type: site unspecified Pancreatitis K85.90 Hepatitis K75.9 Depression with suicidal ideation F32.A; R45.851 Encephalopathy G93.40 Metabolic alkalosis E87.3 Anxiety F41.9 Elevated random blood glucose level R73.09 Hypophosphatemia E83.39 (1) Urinary tract infection Hematuria presence: with hematuria Urinary tract infection type: site unspecified Qualified Code(s): N39.0 - Urinary tract infection, site not specified; R31.9 - Hematuria, unspecified (2) Alcohol withdrawal syndrome Complication of substance-induced condition: with unspecified complication Qualified Code(s): F10.239 - Alcohol dependence with withdrawal, unspecified
[2021-10-12] MEDS: traZODone HCL 100 MG TAB PO PRN (22:18)
[2021-10-12] MEDS ORDERED: ONDANSETRON INJ 2 MG/ML 2 ML VIAL IV PRN (23:15)
[2021-10-13] MEDS: HEPARIN SOD 5,000 UNIT/0.5 ML VIAL SQ SCH ×3 (06:18→21:08)
[2021-10-13] MEDS ORDERED: hydrOXYzine HCl 25 MG TAB PO STA (06:24)
[2021-10-13 07:32] LABS: Hematocrit (blood only) 35.5 % (37-47); Hemoglobin 12.1 g/dL (12.0-16.0); Mean Corpuscular Hgb Conc 34.1 g/dL (32-36); Mean Platelet Volume 9.7 fL (7.4-10.4); Platelet Count 170 K/uL (130-400); RDW Coefficient of Variation 14.9 % (11.5-14.5); RDW Standard Deviation 48.2 fL (36.4-46.3); White Blood Count 5.94 K/uL (4.8-10.8)
[2021-10-13 07:53] LABS: BUN Creatinine Ratio 16.7 (10-20); Calcium 8.3 mg/dl (8.5-10.1); Creatinine Clr Calc Pharmacy 84.1 ml/min; Est GFR (African American) 103.3 ml/min; Est GFR (Non-African American) 89.1 ml/min; Potassium 3.4 mmol/L (3.5-5.1)
[2021-10-13 08:06] LABS: MDA negative; MDEA negative; MDMA (Ecstasy) Urine, Confirm negative
[2021-10-13] MEDS: FOLIC ACID 1 MG TAB PO SCH (09:24)
[2021-10-13] MEDS: lisinopril 10 MG TAB PO SCH (09:24)
[2021-10-13] MEDS: amLODIPine BESYLATE 5 MG TAB PO SCH (09:24)
[2021-10-13] MEDS: THIAMINE HCL 500 MG in SODIUM CHLORIDE 0.9% 50 ML IV SCH ×2 (09:24→16:40)
[2021-10-13] MEDS: ESCITALOPRAM OXALATE 20 MG TAB PO SCH (09:24)
[2021-10-13] MEDS: PANTOprazole 40 MG in SYRINGE 0 ML IV SCH ×2 (09:57→21:08)
[2021-10-13] MEDS: LORazepam 0.5 MG TAB PO PRN (16:40)
[2021-10-13 18:21] LABS: Albumin Level 3.9 gm/dl (3.4-5.0); Bilirubin Direct 0.5 mg/dl (0-0.2); Bilirubin,Total 1.1 mg/dl (0.2-1.0); Total Protein 6.7 gm/dl (6.0-8.3)
--- NOTE | 2021-10-13 21:14 | Hospitalist Progress Note ---
Date of Service October 13, 2021 Assessment & Plan (1) Alcohol withdrawal syndrome: Plan: Overall patient states she only drinks 1 beer per day and 1 shot of demetri- last drink was morning of admission with demetri shot - her ETOH level on admission is <10 - Reportedly found with epmty "handles" of liquor in her room -Patient was last encephalopathic on 10/10 - continue with AWWS score and treatment with benzodiazepines- - Continue Thiamine 500mg IV TID - Folic acid qam - Urine tox screen positive for MDMA - -Patient is more awake on 10/13 and speech is now clear -Patient appears anxious today, ordered .5 mg ativan q4hprn. Patient reports diarrhea, however no evidence of BM, and visitor reports no BM during his visit. Patient had one episode of dysuria, will monitor. off 1 to 1 since 10/12 -PT/OT recommends rehab. -will need drug and alcohol rehab, however Physical therapy is the current priority. Pending placement. -appreciate input from psych. (2) Urinary tract infection: Plan: Urine with bacteria- ketones, blood, bilirubin -completed 3 doses of IV ceftriaxone. This should cover cystitis. -If patient continues to complain of dysuria, may consider repeat UA. - Urine culture shows pansensitive E.coli (3) Pancreatitis: Plan: Lipase 477 with epigastric pain- without elevated WBC or fevers in the setting of alcohol misuse/abuse - Continue with IV hydration LR 100- guide therapy to UO - already received 2 liters of fluid in the EMD- with banana bag and liter of saline - BISAP score- 4- mild elevation of BUN and tachycardia and HTN are resolving with fluid administration and Ativan dosing - obtained CT scan of abd/pelvis for evaluation of liver/gallbladder/pancreas- showed severe hepatic steatosis Lipase remains elevated, however clinically pain has improved. will monitor for symptoms - Low fat carb consistent diet- return to clears if pain with eating (4) Hepatitis: Plan: Likely related to acholic hepatitis- with Jaundice- or onset of cirrhosis with noted severe hepatsteatosis - INR normal - WBC normal- PCT negative - obtained CT abdomen and pelvis to evaluate liver/pancreas/gallbladder and MRCP - supportive care as above (5) Depression with suicidal ideation: Plan: History of Depression and anxiety- PCP notes just note that she sees a psych provider - She reports cutting herself 2 days ago- but got scared and stopped- she has horizontal cuts to her right wrist x2- not infected looking - She does endorse worsening of her depression to the point it has caused strain on her relationship with daughters - Admit with suicide precautions and psych consultation- appreciate assistance - Continue her Lexapro, trazodone PRN at night - Will hold he Hydroxyzine for today and follow with overall benzodiazepine dosing for her likely ETOH withdraw (6) Encephalopathy: Plan: Metabolic vs. Wernicke's - Without nystagmus - No deficits - appears to have resolved on 10/13 (7) Metabolic alkalosis: Plan: PH 7.55 with HCo3 33- with elevated BUN - likely in the setting of hypovolemia secondary to encephalopathy, UTI, pancreatitis, and ETOH use/ketosis - Continue with IVF resuscitation - Follow HCo3 and urine output (8) Anxiety: Plan: As above (9) Elevated random blood glucose level: Plan: Without diagnosis of DM - will place on sliding scale aspart insulin- without carb ratio until oral intake is stable - Goal < 180mg/dl (10) Hypophosphatemia: Plan: As above - replete - K phos Admission and Anticipated Discharge Date Admission Date: October 08, 2021 Subjective Patient havimg multiple complaints in the afternoon. Reporting diarrhea going every half hour to the bathroom. Her significant other was in the room for 90 minutes and he stated she did not have a BM. She also reports an episode of dysuria. Patient also reports feeling anxious. Review of Systems Review of Systems: All systems reviewed & are unremarkable except as noted in HPI & below Physical Exam Physical Exam: General: awake, appropriate, appears anxious Head: Normocephalic, atraumatic ENT: Sclera jaundiced, PERRL, EOMI, no pharyngeal exudate, mucous membranes moist Neuro: AAO x 3, speech improved but remains slow, strength intact bilaterally 5/5, sensation intact and equal all extremities and dermatomes, no pronator drift,tremors without atxia Chest: equal rise and fall of the chest, no accessory muscle use, no heaves or thrills, Clear to auscultation, on room air, Cardiac: Regular rate and rhythm, telemetry reviewed, skin warm dry, cap refill <3 seconds, peripheral pulses +2 no JVD, no murmur, no JVD, no edema GI: epigastric bird and pain to luq with palpation, NABS x 4 quadrants, soft, no rebound, guarding : Spontaneously voiding, no pain, no CVA tenderness, Extremities: Normal inspection, no peripheral edema or erythema, calfs nontender to palpation Skin: cuts to right wrist Results & Data Results & Data ([facility]) Vital Signs (Past 12 Hours) Vital Signs Temp Pulse Resp BP Pulse Ox 10/13/21 16:51 37.3 C 77 16 126/77 92 PG Care Time/CCT Total # of Minutes Spent Total Time Spent with Patient: Total time spent is greater than 50% in coordination of care (as documented) at patient's floor/unit and/or counseling patient: Coding Level of Care Code 40817 Subseq Hosp Care Lvl 3 Diagnoses Alcohol withdrawal syndrome F10.239 Complication of substance-induced condition: with unspecified complication Urinary tract infection N39.0; R31.9 Hematuria presence: with hematuria Urinary tract infection type: site unspecified Pancreatitis K85.90 Hepatitis K75.9 Depression with suicidal ideation F32.A; R45.851 Encephalopathy G93.40 Metabolic alkalosis E87.3 Anxiety F41.9 Elevated random blood glucose level R73.09 Hypophosphatemia E83.39 (1) Urinary tract infection Hematuria presence: with hematuria Urinary tract infection type: site unspecified Qualified Code(s): N39.0 - Urinary tract infection, site not specified; R31.9 - Hematuria, unspecified (2) Alcohol withdrawal syndrome Complication of substance-induced condition: with unspecified complication Qualified Code(s): F10.239 - Alcohol dependence with withdrawal, unspecified
[2021-10-14] MEDS: THIAMINE HCL 500 MG in SODIUM CHLORIDE 0.9% 50 ML IV SCH ×3 (00:07→15:40)
[2021-10-14] MEDS: LORazepam 0.5 MG TAB PO PRN (06:19)
[2021-10-14] MEDS: HEPARIN SOD 5,000 UNIT/0.5 ML VIAL SQ SCH ×2 (06:21→14:26)
--- NOTE | 2021-10-14 07:40 | Hospitalist Progress Note ---
Date of Service October 14, 2021 Assessment & Plan Admission and Anticipated Discharge Date Admission Date: October 08, 2021 Results & Data Results & Data ([facility]) Vital Signs (Past 12 Hours) Vital Signs Temp Pulse Resp BP Pulse Ox 10/14/21 06:19 37 C 89 20 143/93 H 97 10/13/21 21:40 37.2 C 59 L 16 161/87 H 93
[2021-10-14 08:18] LABS: Hemoglobin 11.7 g/dL (12.0-16.0); Mean Corpuscular Hemoglobin 30.3 pg (25-34); Mean Corpuscular Hgb Conc 33.4 g/dL (32-36); Mean Corpuscular Volume 90.7 fL (80-100); Mean Platelet Volume 10.2 fL (7.4-10.4); Platelet Count 235 K/uL (130-400); RDW Coefficient of Variation 15.2 % (11.5-14.5); RDW Standard Deviation 48.8 fL (36.4-46.3); Red Blood Count 3.86 M/uL (4.2-5.4); White Blood Count 5.56 K/uL (4.8-10.8)
[2021-10-14] MEDS: lisinopril 10 MG TAB PO SCH (08:18)
[2021-10-14] MEDS: FOLIC ACID 1 MG TAB PO SCH (08:18)
[2021-10-14] MEDS: PANTOprazole 40 MG in SYRINGE 0 ML IV SCH (08:18)
[2021-10-14] MEDS: ESCITALOPRAM OXALATE 20 MG TAB PO SCH (08:18)
[2021-10-14] MEDS: amLODIPine BESYLATE 5 MG TAB PO SCH (08:18)
[2021-10-14 08:37] LABS: Alanine Aminotransferase 129 U/L (7-52); Albumin Globulin Ratio 1.3 (0.9-2); Albumin Level 3.6 gm/dl (3.4-5.0); Alkaline Phosphatase 120 U/L (34-104); Anion Gap 10 (3-11); BUN Creatinine Ratio 17.4 (10-20); Blood Urea Nitrogen 12 mg/dl (6-23); Calcium 8.2 mg/dl (8.5-10.1); Carbon Dioxide 23 mmol/L (21-32); Chloride 104 mmol/L (98-107); Creatinine Clr Calc Pharmacy 87.8 ml/min; Est GFR (African American) 107.4 ml/min; Est GFR (Non-African American) 92.6 ml/min; Globulin 2.8 gm/dl (2.5-4.0); Glucose 103 mg/dl (70-99(Fasting)); Lipase 488 U/L (11-82); Sodium 137 mmol/L (136-145); Total Protein 6.4 gm/dl (6.0-8.3)
[2021-10-14] MEDS ORDERED: LORazepam 0.5 MG TAB PO PRN (09:02)
[2021-10-14 09:12] LABS: Potassium 3.5 mmol/L (3.5-5.1)
[2021-10-14] MEDS ORDERED: hydrOXYzine HCl 25 MG TAB PO STA (10:57)
--- NOTE | 2021-10-14 12:30 | Psychiatric Progress Note ---
Date of Service October 14, 2021 Impression / Recommendations Impression Vivian is a 61 yo female with recent worsening of depression and alcohol abuse, recent SIB, possible suicide attempt with ongoing AMS, tremor, QTc. Weight loss likely related to pancreatitis and alcohol but no recent TSH on chart. As she was found confused/incontinent after spending time in car withdrawal seizure and/or OD of serotonergic agents should remain in differential. Unclear if tremor and possible clonus withdrawal vs. possible serotonin syndrome. 10/14/21: as per initial consult, AMS essentially resolved, somewhat perseverative on questions due to anxiety. (1) Alcohol withdrawal syndrome: (2) Depression with suicidal ideation: hospitalist updated, Dr. Gardiner states his rec remains inpatient rehab and she has agreed. restart Buspar 15 mg BID (patient preference over 10 mg BID and retitrate) but monitor for activation/hyperreflexia, etc. will defer restart Vistaril to hospitalist service given recent QTc prolongation and similar warnings on trazodone and lexapro remains psychiatrically stable for rehab setting, retains decision making capacity, no longer meeting inpatient mental health criteria, has aftercare with [facility] referral. Risk Factors Assessment Do You Have Access To A Gun?: No Interval History Identifying Information 61 YOF with medical history of: Anxiety/Depression, HTN, current smoker. Patient was found at home on day of admission with AMS and found to also have UTI and pancreatitis. Chief Complaint "I'm still pretty anxious, I'd like to do all the PT stuff at home.". Review of Systems Meal Information reports weakness is improving, denies subjective withdrawal. Subjective Subjective Patient was seen & assessed and interval progress reviewed with nursing. patient would like to restart her anxiety medication. Reviewed rationale for initially holding buspar. She has been on it for some time and doesn't want to retitrate. had good visit with her fiance last pm who is supportive and confirmed that she did not make any active suicidal statements prior to admission. She remains in denial re: her EToH use. Physical Exam Psychiatric Orientation: alert, oriented to person and oriented to place Apperance: appropriately groomed Eye Contact: + fair eye contact Motor Behavior: + tremor Affect: + depressed affect Mood: + depressed mood Thought Process: + concrete thought process Thought Content: reality based without delusions (can't exclude paranoia) Suicidal Thoughts: denies suicidal thoughts Homicidal Thoughts: denies homicidal thoughts Hallucinations: no auditory hallucinations and no visual hallucinations Cognition: language grossly intact; + attention not intact Estimated Intelligence: consistent with education level Insight: + limited insight Judgement: + limited judgement Vital Signs (Past 24 Hours) Last Vital Signs Temp 37.2 C 10/14/21 07:30 Pulse 69 10/14/21 07:30 Resp 16 10/14/21 07:30 BP 158/91 H 10/14/21 07:30 Pulse Ox 95 10/14/21 07:30 Results & Data ([facility]) Laboratory Results Laboratory Results - last 24 hr 10/13/21 10/14/21 10/14/21 17:26 07:29 07:29 WBC 5.56 RBC 3.86 L Hgb 11.7 L Hct 35.0 L MCV 90.7 MCH 30.3 MCHC 33.4 RDW Std Deviation 48.8 H RDW Coeff of Julius 15.2 H Plt Count 235 MPV 10.2 Sodium 137 Potassium TNP Chloride 104 Carbon Dioxide 23 Anion Gap 10 BUN 12 Creatinine 0.69 Est Cr Clr Drug Dosing 87.8 Est GFR ( Amer) 107.4 Est GFR (Non-Af Amer) 92.6 BUN/Creatinine Ratio 17.4 Glucose 103 H Calcium 8.2 L Total Bilirubin 1.1 H 1.0 Direct Bilirubin 0.5 H AST 171 H TNP ALT 147 H 129 H Alkaline Phosphatase 137 H 120 H Total Protein 6.7 6.4 Albumin 3.9 3.6 Globulin 2.8 Albumin/Globulin Ratio 1.3 Lipase 515 H 488 H 10/14/21 08:41 WBC RBC Hgb Hct MCV MCH MCHC RDW Std Deviation RDW Coeff of Julius Plt Count MPV Sodium Potassium 3.5 Chloride Carbon Dioxide Anion Gap BUN Creatinine Est Cr Clr Drug Dosing Est GFR ( Amer) Est GFR (Non-Af Amer) BUN/Creatinine Ratio Glucose Calcium Total Bilirubin Direct Bilirubin AST 133 H ALT Alkaline Phosphatase Total Protein Albumin Globulin Albumin/Globulin Ratio Lipase Current Inpatient Medications Current Inpatient Medications: Current Inpatient Medications Amlodipine Besylate (Amlodipine Besylate 5 Mg Tab) 5 mg PO DAILY KEVIN Stop: 11/08/21 08:59 Last Admin: 10/14/21 08:18 Dose: 5 mg Documented by: Benzonatate (Benzonatate 100 Mg Capsule) 100 mg PO BID PRN PRN Reason: cough Stop: 11/10/21 00:25 Last Admin: 10/11/21 21:42 Dose: 100 mg Documented by: Buspirone HCl (Buspirone 15 Mg Tab) 15 mg PO BID KEVIN Stop: 11/07/21 20:59 Last Admin: 10/09/21 07:56 Dose: 15 mg Documented by: Dextrose (Dextrose 50% 50 Ml Syringe) 25 - 50 ml IV UD PRN; Protocol PRN Reason: Hypoglycemia Protocol Stop: 11/07/21 15:16 Escitalopram Oxalate (Escitalopram Oxalate 20 Mg Tab) 20 mg PO DAILY KEVIN Stop: 11/08/21 08:59 Last Admin: 10/14/21 08:18 Dose: 20 mg Documented by: Folic Acid (Folic Acid 1 Mg Tab) 1 mg PO QAM KEVIN Stop: 11/08/21 08:59 Last Admin: 10/14/21 08:18 Dose: 1 mg Documented by: Glucagon (Glucagon For Inj 1 Mg Vial) 1 mg SQ UD PRN; Protocol PRN Reason: Hypoglycemia Protocol Stop: 11/07/21 15:16 Glucose (Glucose 10 Tabs/Tube) 4 - 8 tabs PO UD PRN; Protocol PRN Reason: Hypoglycemia Protocol Stop: 11/07/21 15:16 Glucose (Glucose 40% Gel 15 Gm Tube) 15 - 30 gm PO UD PRN; Protocol PRN Reason: Hypoglycemia Protocol Stop: 11/07/21 15:16 Heparin Sodium (Porcine) (Heparin Sod 5,000 Unit/0.5 Ml Vial) 5,000 units SQ Q8 KEVIN Stop: 11/07/21 15:29 Last Admin: 10/14/21 06:21 Dose: 5,000 units Documented by: Thiamine HCl 500 mg/ Sodium (Chloride) 55 mls @ 220 mls/hr IV Q8H KEVIN Stop: 11/07/21 15:59 Last Infusion: 10/14/21 08:52 Dose: Infused Documented by: Pantoprazole Sodium 40 mg/ (Syringe) 10 mls @ 5 mls/min IV BID KEVIN Stop: 11/07/21 20:59 Last Admin: 10/14/21 08:18 Dose: 5 mls/min Documented by: Lisinopril (Lisinopril 10 Mg Tab) 10 mg PO DAILY KEVIN Stop: 11/08/21 08:59 Last Admin: 10/14/21 08:18 Dose: 10 mg Documented by: Lorazepam (Lorazepam 0.5 Mg Tab) 0.5 mg PO Q6H PRN PRN Reason: Anxiety Stop: 11/12/21 16:26 Miscellaneous (Carbohydrates For Hypoglycemia ) 15 - 30 gm PO UD PRN PRN Reason: Hypoglycemia Protocol Stop: 11/07/21 15:16 Ondansetron HCl (Ondansetron Inj 2 Mg/Ml 2 Ml Vial) 4 mg IV Q6H PRN PRN Reason: Nausea And Vomiting Stop: 11/11/21 23:14 Last Admin: 10/12/21 23:41 Dose: 4 mg Documented by: Trazodone HCl (Trazodone Hcl 100 Mg Tab) 200 mg PO HS PRN PRN Reason: sleep/anxiety Stop: 11/07/21 15:16 Last Admin: 10/12/21 22:18 Dose: 200 mg Documented by: (1) Alcohol withdrawal syndrome Complication of substance-induced condition: with unspecified complication Qualified Code(s): F10.239 - Alcohol dependence with withdrawal, unspecified
--- NOTE | 2021-10-14 18:34 | Discharge Summary ---
Date of Service October 14, 2021 Admission HPI Per Admitting Provider 61 YOF with medical history of: Anxiety/Depression, HTN, current smoker. Patient was found at home today by her significant other with alteration in her mental sate and 911 and ploice were reportedly called. There was report from the significant other that there were multiple bottles of liquor found in the garage that were empty. She endorses to drinking 1 beer per day and 1 shot of demetri. Upon her being brought over here as well, it was noted that she had cuts to her right wrist. She reports doing this 2 days ago, but stopped because she got scared, but was feeling very sad that day. Patient also endorses epigastric abdominal pain. In the EMD the patient had routine labs performed, CXR done and ECG done. She was given 1mg of Ativan, 300mg of Thiamine total 100mg in banana bag and 200mg prior and 1 liter of crystalloid. Labs returned with abnormal UA, Elevated glucose, and elevated lipase. Hospitalist service was consulted for admission. LFTS are pending, but is with normal INR as well as normal WBC/HGB. Patient will be admitted for her encephalopathy, alcohol withdraw monitoring, will obtain CT abdomen and pelvis and continue with AWWS and Thiamine at 500mg IV TID. Will consult psych. Consult case management to follow along for either psych or ETOH rehab as more information becomes available. COVID test on admission is: NEGATIVE Principal Diagnosis Alcohol withdrawal Discharge Exam General: Patient is AAO x3. She appears slightly anxious and mildly tremulous in the upper extremities bilaterally. However, she appears to be in no acute distress. HEENT: Non-erythematous oropharynx; no lymphadenopathy; normal dentition. CV: Regular rate and rhythm. Normal S1 and S2. No murmurs gallops or rubs. No pedal edema. Pulmonary: Lungs are clear to auscultation bilaterally. No crackles, rhonchi, or wheezes. Abdomen: Soft, nondistended abdomen. No bruits heard on auscultation. No tenderness to deep palpation. No guarding or rebound. MSK: Full ROM at all joints. Equal 5/5 strength bilaterally. Neuro: 1-2 beats of clonus in the upper extremities bilaterally, at the wrists. Psych: Congruent mood and affect. Discharge Data Allergies Allergy/AdvReac Type Severity Reaction Status Date / Time Penicillins Allergy Hives Verified 10/08/21 11:03 Sulfa (Sulfonamide Allergy Hives Verified 10/08/21 11:03 Antibiotics) Consultations 10/08/21 12:57 ED Decision to Admit Stat 10/08/21 15:17 Consult Psychiatry Routine 10/08/21 15:43 Consult Behavioral Health Liaison Routine Ordered Studies 10/08/21 11:13 CT abd pelvis wo con Stat CT head/brain wo con Stat 10/08/21 14:55 MR MRCP Urgent Hospital Course (1) Alcohol withdrawal syndrome: Patient was brought to the ER after found unconscious at home by her partner. On admission she appeared disoriented and was slurring her words but complained of epigastric pain. She was admitted with concern for alcohol withdrawal syndrome. Alcohol withdrawal * Pt was tachycardic to the high 110s, hypertensive to the 180s/100s, tremulous, encephalopathic, and jaundiced (sclera) * AST/ALT (777/255) on admission * CT abdomen: severe hepatic steatosis, sludge-filled gallbladder w/o wall thickening. * Started on ELLYN protocol w/ Ativan for symptomatic management. Anxiety meds held. * IV Thiamine 500 mg tid, Folate 1 mg qAM * Symptomatically improved over hospital course: hypertension, tachycardia, encephalopathy, jaundice all resolved * Cleared by PT for discharge home: recommended walker for home. Script signed and given to case management UTI * Bacteriuric on admission. Received Ceftriaxone x1 in the ED. Patient was asymptomatic * UCx positive for pansensitive E. coli Pancreatitis * Lipase 477. WBC normal * CT abdomen findings as above (alcohol withdrawal) * Aggressive hydration with IV LR. * Epigastric pain improved. Pt successfully trialed low fat diet before d/c home (2) Pancreatitis: (3) Hepatitis: (4) Anxiety: (5) Urinary tract infection: (6) Depression with suicidal ideation: (7) Encephalopathy: Total Time Total Time Spent Total Time Spent (In Minutes): <30 Discharge Plan Discharge Items Patient Disposition: Home - Self-Care Reason For Visit: ALCOHOL WITHDRAW, ALCOHOLIC HEPATITIS Discharge Diagnosis: Alcohol withdrawal Activity: Per Instructions section Non-emergency contact: Primary Care Provider Call non-emergency contact if: you have any medication questions and your symptoms worsen Follow-up/Referrals: [facility] [Outside] - 10/14/21 2:50 pm (appt with Juliet via phone) Judy Quintanilla MD [Primary Care Provider] - Diet: Regular Addtl Attending Provider Instructions: You were admitted to the hospital for abdominal pain, and loss of consciousness, secondary to alcohol intoxication and pancreatitis. You were treated with medicines to prevent withdrawal symptoms, medicines to protect your brain function, and IV fluids. You were also closely monitored to make sure you did not develop alcohol withdrawal syndrome. Over the next few days, your symptoms gradually improved, until they resolved. Therefore from a medical standpoint, we feel that you are ready to be discharged home safely. A discharge summary will be sent to your primary care physician to ensure continuity of care. Please bring this discharge summary with you to your next office appointment so that your provider can review it at that time. Follow-up appointments: * Make a follow-up appointment with your PCP within the next week. It is very important that you follow up with them shortly after discharge from the hospital. * Keep all your follow-up appointments, including acute rehab, as already scheduled. If you cannot make an appointment, notify your provider. Medications: Your medication list has been reviewed and reconciled upon discharge to ensure accuracy and continuity of care. An updated list of all your medications is included with your hospital discharge paperwork. Please review this list closely, and make note of any changes. * We made no changes to your home medications. Take your medications as instructed; do not skip a dose of your medicines. Make sure all of your doctors know every medicine you are taking (including [id number] medicines, vitamins, and supplements). Call your primary care provider before taking any new medicines (including [id number] medicines, vitamins, and supplements), because some of these may interact with your current medications, or may make your symptoms worse. Tell your primary care provider if you cannot afford your medications. CONTACT YOUR PRIMARY CARE PROVIDER if you experience any of the following: * Headaches, nausea, tremors, anxiety, hallucinations, or seizures * Sweating, restlessness, vomiting, anxiety, or insomnia * Difficulty following your treatment plan, or difficulty taking medications CALL 911 OR GO TO THE EMERGENCY DEPARTMENT if you experience any of the following: * Sudden, severe abdominal pain or nausea/vomiting * Severe chest pain, or chest pain that radiates (moves) to your jaw or arm * Sudden, severe shortness of breath or difficulty breathing Thank you for allowing us to participate in your care. Pending Studies at Discharge: No Stand-Alone Forms: My [facility] [employer], Smoking Cessation Medications and DC Order Prescriptions: New thiamine HCl (vitamin B1) 100 mg tablet 100 mg PO DAILY 30 Days Qty: 30 RF: 0 folic acid 1 mg tablet 1 mg PO DAILY 30 Days Qty: 30 RF: 0 Continued hydroxyzine HCl 50 mg Tablet 50 mg PO BID RF: 0 hydroxyzine HCl 50 mg Tablet 50 mg PO BID PRN (Reason: Anxiety) RF: 0 amlodipine 5 mg Tablet 5 mg PO DAILY RF: 0 trazodone 100 mg Tablet 200 mg PO HS RF: 0 pantoprazole 40 mg Tablet,Delayed Release (Dr/Ec) 40 mg PO DAILY RF: 0 lisinopril 10 mg Tablet 10 mg PO DAILY RF: 0 buspirone 15 mg Tablet 15 mg PO BID RF: 0 escitalopram oxalate [Lexapro] 20 mg Tablet 20 mg PO DAILY RF: 0 Discharge Orders: Discharge Order (Routine); Ordered 10/14/21 Ordered By: Nancy Parker/Other Patient Handouts: Alcohol Withdrawal: What to Expect Admission Data Admit Date/Time: 10/08/21 13:10 Attending Provider: Cheo Gardiner Admit Provider: Slick Garcia Primary Care Provider: Judy Quintanilla Other Providers: Slick Garcia ; Krystle Pathak ; Shruthi Flanagan ; Laisha Willingham ; [place] ; [facility], ; [place] Other Interventions: Discharge Summary Assessment (RN) Last Done: 10/14/21 18:10 Supervising Physician Co-Signing Physician Notes I personally examined the patient and verified all gottlieb points of history and exam, discussed case, and agree with decision making with Dr Fung feels ok. wants to go home instead of rehab - when i see her the most recent recs/plan were still looking to rehab, but as the day progressed, home w walker was deemed safe vitals noted had heent nc at mmm breathing unlabored no accessory muscles good effort skin no rashes no pallor or icterus EtOH abuse/withdrawal/EtOH hepatitis - all appear to be improving. safe/stable for discharge. no EtOH. continue thiamine, folate. outpt follow up, outpt labs weakness/deconditioning - outpt PT. walker. fortunately able to go home instead of facility otherwise as above Resident Activity Tracking Resident Involvement: Resident Care Provided Care Provided: Adult Hospital Medicine
--- NOTE | 2021-10-14 18:48 | Billing Data ---
Date of Service October 14, 2021 Coding Level of Care Code D/C DAY MANAGEMENT <30 MINS
== END 2021-10-14 18:35 | disposition home health service (06) | DRG 896 ==
LOC: ED 10:13 → 2E 13:10 → SUATTDRO 13:10 → 2E 14:31 → 2W 10-10 18:02 → 3E 10-13 00:23
DX: E87.3 Alkalosis; F32.A Depression, unspecified; R45.851 Suicidal ideations; E83.39 Other disorders of phosphorus metabolism; I10 Essential (primary) hypertension; Z88.2 Allergy status to sulfonamides; G93.41 Metabolic encephalopathy; F41.9 Anxiety disorder, unspecified; K70.10 Alcoholic hepatitis without ascites; K85.90 Acute pancreatitis without necrosis or infection, unspecified; F10.239 Alcohol dependence with withdrawal, unspecified; Z88.0 Allergy status to penicillin; F17.210 Nicotine dependence, cigarettes, uncomplicated; E51.2 Wernicke's encephalopathy; K76.0 Fatty (change of) liver, not elsewhere classified; N39.0 Urinary tract infection, site not specified; R00.0 Tachycardia, unspecified